=== PATIENT | female | born 1960 | race Caucasian/White ===

== ENCOUNTER 2023-06-26 17:41 | Inpatient (IN) | payer BC ==
--- NOTE | 2023-06-26 18:41 | ED ---
Recheck HPI - General Chief Complaint: Upper Respiratory Infection Stated Complaint: Upper respiratory Time Seen by Provider: 06/26/23 18:25 Source: patient, RN notes reviewed, old records reviewed Mode of arrival: EMS Limitations: no limitations - History of Present Illness Initial Comments: This is a 63-year-old female to the emergency department for evaluation today. Patient presents today for evaluation of pneumonia. Patient is accepted in transfer for evaluation of multiple laboratory abnormalities and positive for pneumonia. Patient herself is still short of breath here in the emergency department. Patient again except just transfer MD Complaint: abnormal lab, other (Pneumonia, renal failure, elevated potassium) -: unknown Returns Today for: Called Because of Abnormal Lab/Test, persistent/worsening pain related to initial visit Symptoms Since Prior Visit: no new symptoms Context: planned re-check, called for abnormal lab result Associated Symptoms: none Treatments Prior to Arrival: Given Antibiotics on, other - Related Data Previous Rx's Medication Instructions Recorded Ampicillin-Sulbactam [Unasyn 3 gm 3 gm IVPB Q24HR@1600 each 07/01/23 vial] Metoprolol Tartrate [Lopressor] 100 mg PO BID tab 07/01/23 Allergies Allergy/AdvReac Type Severity Reaction Status Date / Time bee venom protein (honey bee) Allergy Anaphylaxis Verified 06/26/23 18:53 morphine Allergy Rash/Hives Verified 06/26/23 18:53 bagged carrots AdvReac Nausea & Uncoded 06/26/23 18:52 Vomiting & Diarrhea bagged lettuce AdvReac Nausea & Uncoded 06/26/23 18:52 Vomiting & Diarrhea preservatives AdvReac Nausea & Uncoded 06/26/23 18:52 Vomiting & Diarrhea Review of Systems ROS Statement: Those systems with pertinent positive or pertinent negative responses have been documented in the HPI. ROS Other: All systems not noted in ROS Statement are negative. Past Medical History Past Medical History: Hyperlipidemia, Hypertension Additional Past Medical History / Comment(s): colon polup, diverticulosis, kidney stone Past Surgical History: Section, Hysterectomy, Tubal Ligation Additional Past Surgical History / Comment(s): colonoscopy 2014 Past Psychological History: No Psychological Hx Reported Smoking Status: Former smoker Past Alcohol Use History: None Reported Past Drug Use History: None Reported General Exam Limitations: no limitations General appearance: alert, in no apparent distress Head exam: Present: atraumatic, normocephalic, normal inspection Eye exam: Present: normal appearance, PERRL, EOMI. Absent: scleral icterus, c onjunctival injection, periorbital swelling ENT exam: Present: normal exam, mucous membranes moist Neck exam: Present: normal inspection. Absent: tenderness, meningismus, lymphadenopathy Respiratory exam: Present: normal lung sounds bilaterally. Absent: respiratory distress, wheezes, rales, rhonchi, stridor Cardiovascular Exam: Present: regular rate, normal rhythm, normal heart sounds. Absent: systolic murmur, diastolic murmur, rubs, gallop, clicks GI/Abdominal exam: Present: soft, normal bowel sounds. Absent: distended, tenderness, guarding, rebound, rigid Extremities exam: Present: normal inspection, full ROM, normal capillary refill. Absent: tenderness, pedal edema, joint swelling, calf tenderness Back exam: Present: normal inspection Neurological exam: Present: alert, oriented X3, CN II-XII intact Psychiatric exam: Present: normal affect, normal mood Skin exam: Present: warm, dry, intact, normal color. Absent: rash Course Vital Signs 06/26/23 06/26/23 06/26/23 17:45 19:00 20:00 Temperature 97.1 F L Pulse Rate 74 Respiratory 22 14 18 Rate Blood Pressure 145/115 142/66 159/87 O2 Sat by Pulse 94 L 93 L 90 L Oximetry 06/26/23 06/26/23 21:00 22:00 Temperature Pulse Rate 81 78 Respiratory 20 15 Rate Blood Pressure 132/64 153/78 O2 Sat by Pulse 92 L 98 Oximetry - Reevaluation(s) Reevaluation #1: 06/26/23 18:52 Medical records reviewed 06/26/23 18:53 Transfer paperwork is reviewed Reevaluation #2: 06/26/23 20:34 Patient has no significant change in symptoms Reevaluation #3: 06/26/23 20:34 Patient informed of results questions answered Reevaluation #4: 06/26/23 18:53 Was pt. sent in by a medical professional or institution (, PA, THERMAL CUTTING MACHINE OPERATOR, urgent care, hospital, or senior care...) When possible be specific @ -no Did you speak to anyone other than the patient for history (EMS, parent, family, police, friend...)? What history was obtained from this source @ -no Did you review nursing and triage notes (agree or disagree)? Why? @ -agree Are old charts reviewed (outside hosp., previous admission, EMS record, old EKG, old radiological studies, urgent care reports/EKG's, senior care records)? Report findings @ -yes Differential Diagnosis (chest pain, altered mental status, abdominal pain women, abdominal pain men, vaginal bleeding, weakness, fever, dyspnea, syncope, headache, dizziness, GI bleed, back pain, seizure, CVA, palpatations, mental health, musculoskeletal)? @ -prior EKG interpreted by me (3pts min.). @ -yes X-rays interpreted by me (1pt min.). @ -yes CT interpreted by me (1pt min.). @ -no U/S interpreted by me (1pt. min.). @ -no What testing was considered but not performed or refused? (CT, X-rays, U/S, labs)? Why? @ -none What meds were considered but not given or refused? Why? @ -none Did you discuss the management of the patient with other professionals ( professionals i.e. , PA, THERMAL CUTTING MACHINE OPERATOR, lab, RT, psych nurse, social services, wood shop teacher, teacher, sheriffs officer, casework supervisor)? Give summary @ -no Was smoking cessation discussed for >3mins.? @ -no Was critical care preformed (if so, how long)? @ -no Were there social determinants of health that impacted care today? How? (Homelessness, low income, unemployed, alcoholism, drug addiction, transportation, low edu. Level, literacy, decrease access to med. care, usp, rehab)? @ -none Was there de-escalation of care discussed even if they declined (Discuss DNR or withdrawal of care, Hospice)? DNR status @ -no What co-morbidities impacted this encounter? (DM, HTN, Smoking, COPD, CAD, Cancer, CVA, ARF, Chemo, Hep., AIDS, mental health diagnosis, sleep apnea, morbid obesity)? @ -none Was patient admitted / discharged? Hospital course, mention meds given and route, prescriptions, significant lab abnormalities, going to OR and other pertinent info. @ - 63 female in transfer for upper respiratory infection pneumonia renal failure with elevated potassium. Admitted Undiagnosed new problem with uncertain prognosis? @ -no Drug Therapy requiring intensive monitoring for toxicity (Heparin, Nitro, Insul in, Cardizem)? @ -no Were any procedures done? @ -no Diagnosis/symptom? @ -Acute renal failure with elevated potassium and pneumonia Acute, or Chronic, or Acute on Chronic? @ -Acute Uncomplicated (without systemic symptoms) or Complicated (systemic symptoms)? @ -Complicated Side effects of treatment? @ -no Exacerbation, Progression, or Severe Exacerbation? @ -exacerbation Poses a threat to life or bodily function? How? (Chest pain, [place], [place], pneumonia, PE, COPD, DKA, ARF, appy, cholecystitis, CVA, Diverticulitis, Homicidal, Suicidal, threat to staff... and all critical care pts) @ -yes - Consultations Consultation #1: Spoke with [facility] who agreed to admit the patient Medical Decision Making - Medical Decision Making 63 female in transfer for upper respiratory infection pneumonia renal failure with elevated potassium. - Lab Data Result diagrams: 07/01/23 01:58 07/01/23 14:06 Lab Results 06/26/23 06/26/23 06/26/23 Range/Units 19:17 19:17 19:17 WBC 17.7 H (3.8-10.6) k/uL RBC 3.40 L (3.80-5.40) m/uL Hgb 10.2 L (11.4-16.0) gm/dL Hct 29.4 L (34.0-46.0) % MCV 86.5 (80.0-100.0) fL MCH 30.1 (25.0-35.0) pg MCHC 34.9 (31.0-37.0) g/dL RDW 13.7 (11.5-15.5) % Plt Count 445 (150-450) k/uL MPV 6.6 Neutrophils % 88 % Lymphocytes % 7 % Monocytes % 4 % Eosinophils % 1 % Basophils % 0 % Neutrophils # 15.6 H (1.3-7.7) k/uL Lymphocytes # 1.3 (1.0-4.8) k/uL Monocytes # 0.6 (0-1.0) k/uL Eosinophils # 0.1 (0-0.7) k/uL Basophils # 0.0 (0-0.2) k/uL PT 10.8 (9.0-12.0) sec INR 1.0 (<1.2) Sodium 122 L (137-145) mmol/L Potassium 5.0 (3.5-5.1) mmol/L Chloride 83 L (98-107) mmol/L Carbon Dioxide 19 L (22-30) mmol/L Anion Gap 20 mmol/L BUN 100 H (7-17) mg/dL Creatinine 14.72 H* (0.52-1.04) mg/dL Est GFR (CKD-EPI)AfAm 3 (>60 ml/min/1.73 sqM) Est GFR (CKD-EPI)NonAf 2 (>60 ml/min/1.73 sqM) Glucose 72 L (74-99) mg/dL Calcium 10.1 (8.4-10.2) mg/dL Phosphorus 9.9 H* (2.5-4.5) mg/dL Magnesium 2.2 (1.6-2.3) mg/dL Total Bilirubin 0.8 (0.2-1.3) mg/dL AST 23 (14-36) U/L ALT 25 (4-34) U/L Alkaline Phosphatase 160 H (38-126) U/L Troponin I (0.000-0.034) ng/mL Total Protein 6.8 (6.3-8.2) g/dL Albumin 3.4 L (3.5-5.0) g/dL 06/26/23 Range/Units 19:17 WBC (3.8-10.6) k/uL RBC (3.80-5.40) m/uL Hgb (11.4-16.0) gm/dL Hct (34.0-46.0) % MCV (80.0-100.0) fL MCH (25.0-35.0) pg MCHC (31.0-37.0) g/dL RDW (11.5-15.5) % Plt Count (150-450) k/uL MPV Neutrophils % % Lymphocytes % % Monocytes % % Eosinophils % % Basophils % % Neutrophils # (1.3-7.7) k/uL Lymphocytes # (1.0-4.8) k/uL Monocytes # (0-1.0) k/uL Eosinophils # (0-0.7) k/uL Basophils # (0-0.2) k/uL PT (9.0-12.0) sec INR (<1.2) Sodium (137-145) mmol/L Potassium (3.5-5.1) mmol/L Chloride (98-107) mmol/L Carbon Dioxide (22-30) mmol/L Anion Gap mmol/L BUN (7-17) mg/dL Creatinine (0.52-1.04) mg/dL Est GFR (CKD-EPI)AfAm (>60 ml/min/1.73 sqM) Est GFR (CKD-EPI)NonAf (>60 ml/min/1.73 sqM) Glucose (74-99) mg/dL Calcium (8.4-10.2) mg/dL Phosphorus (2.5-4.5) mg/dL Magnesium (1.6-2.3) mg/dL Total Bilirubin (0.2-1.3) mg/dL AST (14-36) U/L ALT (4-34) U/L Alkaline Phosphatase (38-126) U/L Troponin I <0.012 (0.000-0.034) ng/mL Total Protein (6.3-8.2) g/dL Albumin (3.5-5.0) g/dL - EKG Data -: EKG Interpreted by Me (EKG is sinus 78 IN 194 QRS 103 QTC 398) - Radiology Data Radiology results: report reviewed (Patient had outpatient computed tomography scan confirming pneumonia), image reviewed Critical Care Time Critical Care Time: Yes Total Critical Care Time: 31 Disposition Clinical Impression: Acute upper respiratory infection, Pneumonia, YASMINE (acute kidney injury), Hyperkalemia Disposition: ADMITTED IP TO THIS HOSP Condition: Stable Is patient prescribed a controlled substance at d/c from ED?: No Time of Disposition: 20:30
[2023-06-26] MEDS ORDERED: ONDANSETRON 4 MG/2 ML VIAL IVP STA (19:00)
[2023-06-26] MEDS ORDERED: SODIUM CHLORIDE 0.9% 1,000 ML IV STA (19:00)
[2023-06-26] MEDS ORDERED: ONDANSETRON 4 MG/2 ML VIAL IVP PRN (20:26)
[2023-06-26] MEDS ORDERED: NALOXONE 0.4 MG/ML 1 ML VIAL IV PRN (20:26)
[2023-06-26] MEDS: SODIUM CHLORIDE 0.9% 1,000 ML IV SCH (20:41)
[2023-06-26 20:42] LABS: Basophils % (A) 0 %; Eosinophils # (A) 0.1 k/uL (0-0.7); Eosinophils % (A) 1 %; HCT 29.4 % (34.0-46.0); HGB 10.2 gm/dL (11.4-16.0); Lymphocytes # (A) 1.3 k/uL (1.0-4.8); Lymphocytes % (A) 7 %; MCH 30.1 pg (25.0-35.0); MCHC 34.9 g/dL (31.0-37.0); MCV 86.5 fL (80.0-100.0); Mean Platelet Volume 6.6; Monocytes # (A) 0.6 k/uL (0-1.0); Monocytes % (A) 4 %; Neutrophils # (A) 15.6 k/uL (1.3-7.7); Neutrophils % (A) 88 %; Platelet Count 445 k/uL (150-450); RDW 13.7 % (11.5-15.5); WBC 17.7 k/uL (3.8-10.6)
[2023-06-26 20:53] LABS: Prothrombin Time 10.8 sec (9.0-12.0)
[2023-06-26 21:11] LABS: ALT 25 U/L (4-34); AST 23 U/L (14-36); African American GFR (CKD) 3 (>60 ml/min/1.73 sqM); Albumin 3.4 g/dL (3.5-5.0); Alkaline Phosphatase 160 U/L (38-126); Anion Gap 20 mmol/L; Blood Urea Nitrogen 100 mg/dL (7-17); Calcium 10.1 mg/dL (8.4-10.2); Carbon Dioxide 19 mmol/L (22-30); Chloride 83 mmol/L (98-107); Glucose 72 mg/dL (74-99); Magnesium 2.2 mg/dL (1.6-2.3); Non-African American GFR(CKD) 2 (>60 ml/min/1.73 sqM); Sodium 122 mmol/L (137-145); Total Bilirubin 0.8 mg/dL (0.2-1.3); Total Protein 6.8 g/dL (6.3-8.2)
[2023-06-26 21:35] LABS: Phosphorus 9.9 mg/dL (2.5-4.5)
[2023-06-27] MEDS ORDERED: IPRATROPIUM-ALBUTEROL 3 ML NEB INHALATION PRN ×2 (02:38→06:40)
[2023-06-27] MEDS ORDERED: IPRATROPIUM-ALBUTEROL 3 ML NEB INHALATION SCH (02:45)
--- NOTE | 2023-06-27 06:41 | P.CNPUL ---
History of Present Illness Consult date: 06/27/23 Requesting physician: Luis Allan Reason for consult: pneumonia Chief complaint: Nausea and vomiting and shortness of breath History of present illness: I am seeing this patient in new consultation today 06/27/2023 after she was transferred from [facility] yesterday evening reportedly for pneumonia among other medical concerns. Patient is a 63-year-old white female past medic al history significant for hypertension, hyperlipidemia, and obesity. Denies any significant pulmonary disease or being a tobacco smoker. Patient reportedly started to experience intractable nausea and vomiting, diarrhea, reduced appetite, and shortness of breath approximately one week ago. Patient did have a workup at [facility] which included a nonenhanced abdominal and pelvis CT, which was reportedly concerning for a right middle lobe infiltrate/pneumonia. No acute intra-abdominal abnormalities were reported. Patient denies any abdominal pain, constipation, bloody stools, or hematemesis. At the outside facility, the patient was also found to have acute kidney injury and multiple electrolyte abnormalities. She was reportedly taking ibuprofen for several days. BMP on arrival to our facility shows a sodium 122, potassium 5, chloride 83, serum bicarb 19, BUN 100, creatinine 14.72, glucose 72, phosphorus 9.9. No plans for hemodialysis at this time. Urinalysis at outside facility was not particularly concerning for UTI. Troponins were less than 0.012. CBC on arrival to our facility shows leukocytosis with a WBC count of 17.7, hemoglobin 10.2, hematocrit 29.4, chloride 445. The patient was started on a combination of azithromycin and Rocephin. Patient is currently afebrile. Blood pressure is normotensive. She was reportedly fluid resuscitated with a total of 2 L normal saline bolus, and currently has normal saline infusing at 130 ML's per hour. Patient is currently sitting up in bed, on 4 L/m nasal cannula, in no acute distress. She denies any further vomiting today, and is able to keep down clear liquids. Vital signs are stable at this time. Review of Systems REVIEW OF SYSTEMS: CONSTITUTIONAL: Denies any recent significant weight loss or weight gain. EYES: Denies change in vision. EARS, NOSE, MOUTH, THROAT: Denies headaches, denies sore throat. CARDIOVASCULAR: Denies chest pain, palpitations or syncopal episodes. RESPIRATORY: Denies cough, congestion or hemoptysis. Admits shortness breath, especially on exertion, over one week. GASTROINTESTINAL: See HPI GENITOURINARY: Denies hematuria, denies infections. MUSKULOSKELETAL: Denies pain, denies swelling. INTEGUMENTARY: Denies rash, denies eczema. NEUROLOGICAL: Denies recent memory loss, no recent seizure activity. PSYCHIATRIC: Denies anxiety, denies depression. HEMATOLOGIC/LYMPHATIC: Denies anemia, denies enlarged lymph node Past Medical History Past Medical History: Hyperlipidemia, Hypertension Additional Past Medical History / Comment(s): colon polup, diverticulosis, kidney stone History of Any Multi-Drug Resistant Organisms: None Reported Past Surgical History: Section, Hysterectomy, Tubal Ligation Additional Past Surgical History / Comment(s): colonoscopy 2014 Past Anesthesia/Blood Transfusion Reactions: No Reported Reaction Past Psychological History: No Psychological Hx Reported Smoking Status: Former smoker Past Alcohol Use History: None Reported Past Drug Use History: None Reported Medications and Allergies Home Medications Medication Instructions Recorded Confirmed Type Metoprolol Tartrate [Lopressor] 50 mg PO BID-W/MEALS 06/26/23 06/26/23 History Allergies Allergy/AdvReac Type Severity Reaction Status Date / Time bee venom protein (honey bee) Allergy Anaphylaxis Verified 06/26/23 18:53 morphine Allergy Rash/Hives Verified 06/26/23 18:53 bagged carrots AdvReac Nausea & Uncoded 06/26/23 18:52 Vomiting & Diarrhea bagged lettuce AdvReac Nausea & Uncoded 06/26/23 18:52 Vomiting & Diarrhea preservatives AdvReac Nausea & Uncoded 06/26/23 18:52 Vomiting & Diarrhea Physical Exam Vitals: Vital Signs Temp Pulse Pulse Resp BP BP Pulse Ox 06/27/23 04:00 97.9 F 60 19 140/83 95 06/27/23 03:03 71 06/27/23 02:53 70 06/27/23 02:45 71 22 173/87 91 L 06/27/23 00:00 72 18 148/81 98 06/26/23 23:19 97.8 F 75 20 152/83 97 06/26/23 22:00 78 15 153/78 98 06/26/23 21:00 81 20 132/64 92 L 06/26/23 20:00 18 159/87 90 L 06/26/23 19:00 14 142/66 93 L 06/26/23 17:45 97.1 F L 74 22 145/115 94 L Intake and Output 06/26/23 06/26/23 06/27/23 14:59 22:59 06:59 Other: Voiding Method Toilet # Voids 1 Weight 117.934 kg GENERAL EXAM: Alert, 63-year-old obese white female appearing stated age , co mfortable in no apparent distress. HEAD: Normocephalic and atraumatic EYES: Normal reaction of pupils, equal size. NOSE: Clear with pink turbinates. THROAT: No erythema or exudates. NECK: No masses, no JVD. CHEST: No chest wall deformity. LUNGS: Equal air entry with inspiratory right posterior crackles. No wheeze, rhonchi or dullness. On 4 L/m nasal cannula. No conversational dyspnea or accessory muscle use.. CVS: S1 and S2 normal with no audible murmur, regular rhythm. No extra heart sounds ABDOMEN: Obese abdomen, no hepatosplenomegaly, active bowel sounds, no guarding or rigidity. SPINE: No scoliosis or deformity SKIN: No rashes CENTRAL NERVOUS SYSTEM: No focal deficits, tone is normal in all 4 extremities. EXTREMITIES: There is no peripheral edema, clubbing, or cyanosis. Peripheral pulses are intact. Results - Laboratory Findings CBC and BMP: 06/26/23 19:17 06/26/23 19:17 PT/INR, D-dimer PT 10.8 sec (9.0-12.0) 06/26/23 19:17 INR 1.0 (<1.2) 06/26/23 19:17 Abnormal lab findings: Abnormal Labs 06/26/23 06/26/23 19:17 19:17 WBC 17.7 H RBC 3.40 L Hgb 10.2 L Hct 29.4 L Neutrophils # 15.6 H Sodium 122 L Chloride 83 L Carbon Dioxide 19 L BUN 100 H Creatinine 14.72 H* Glucose 72 L Phosphorus 9.9 H* Alkaline Phosphatase 160 H Albumin 3.4 L Assessment and Plan Assessment: Acute hypoxemic respiratory failure, on 4 L/m nasal cannula, possibly secondary to right middle lobe infiltrate/pneumonia as reported from outside facility, currently being treated on empiric antibiotics. Follow-up chest x-ray is pending Suspect acute gastroenteritis and dehydration Leukocytosis Acute kidney injury, creatinine 14.72 Acute anion gap metabolic acidosis Hyponatremia, related to hypovolemia Hyperkalemia, improved Hyperphosphatemia Essential hypertension Hyperlipidemia Morbid obesity, with a BMI of 37 kg/m Plan: Patient's medications and labs reviewed Obtain chest x-ray Continue supplemental oxygen to maintain oxygen saturation 92% or greater Continue empiric antibiotics Add DuoNeb's Normal saline is infusing at 130 ML's per hour Nephrology is following Obtain renal artery Doppler We will continue to follow and make recommendations I have personally seen and examined the patient, performed the documentation and the assessment and plan as written. Number of minutes spent on the visit:20 Time with Patient: Greater than 30
[2023-06-27] MEDS: SODIUM CHLORIDE 0.9% 1,000 ML IV SCH (06:51)
--- NOTE | 2023-06-27 08:19 | XR ---
EXAMINATION TYPE: XR chest 1V portable DATE OF EXAM: 06/27/2023 6:52 AM COMPARISON: Chest radiographs from 06/26/2023 TECHNIQUE: XR chest 1V portable Portable AP radiograph of the chest. CLINICAL INDICATION:Female, 63 years old with history of reported pneumonia at outside facility; FINDINGS: Lungs/Pleura: No pleural effusion or pneumothorax. Right midlung patchy airspace opacities. Pulmonary vascularity: Unremarkable. Heart/mediastinum: Cardiomediastinal silhouette is unremarkable. Musculoskeletal: No acute osseous pathology. IMPRESSION: Right midlung patchy airspace opacities concerning for pneumonia.
[2023-06-27] MEDS: AZITHROMYCIN 500 MG in SODIUM CHLORIDE 0.9% 250 ML IVPB SCH (08:43)
[2023-06-27] MEDS: METOPROLOL TARTRATE 50 MG TAB PO SCH ×2 (08:43→16:54)
[2023-06-27 09:22] LABS: Basophils % (A) 0 %; Eosinophils % (A) 0 %; HCT 30.3 % (34.0-46.0); HGB 10.3 gm/dL (11.4-16.0); Lymphocytes # (A) 1.1 k/uL (1.0-4.8); Lymphocytes % (A) 6 %; MCH 30.1 pg (25.0-35.0); MCHC 33.9 g/dL (31.0-37.0); MCV 88.8 fL (80.0-100.0); Mean Platelet Volume 6.8; Monocytes # (A) 0.5 k/uL (0-1.0); Monocytes % (A) 3 %; Neutrophils # (A) 16.7 k/uL (1.3-7.7); Neutrophils % (A) 91 %; Platelet Count 436 k/uL (150-450); RBC 3.42 m/uL (3.80-5.40); RDW 13.8 % (11.5-15.5); WBC 18.4 k/uL (3.8-10.6)
[2023-06-27 10:05] LABS: ALT 24 U/L (4-34); AST 24 U/L (14-36); African American GFR (CKD) 3 (>60 ml/min/1.73 sqM); Albumin 3.5 g/dL (3.5-5.0); Alkaline Phosphatase 151 U/L (38-126); Anion Gap 20 mmol/L; Calcium 9.4 mg/dL (8.4-10.2); Carbon Dioxide 16 mmol/L (22-30); Chloride 87 mmol/L (98-107); Glucose 84 mg/dL (74-99); Magnesium 2.1 mg/dL (1.6-2.3); Non-African American GFR(CKD) 3 (>60 ml/min/1.73 sqM); Sodium 123 mmol/L (137-145); Total Bilirubin 0.7 mg/dL (0.2-1.3); Total Protein 6.8 g/dL (6.3-8.2)
[2023-06-27] MEDS: IPRATROPIUM-ALBUTEROL 3 ML NEB INHALATION SCH ×4 (10:06→19:38)
--- NOTE | 2023-06-27 10:10 | US ---
EXAMINATION TYPE: US renals and bladder DATE OF EXAM: 06/27/2023 COMPARISON: None CLINICAL INDICATION: Female, 63 years old with history of acute kidney injury; Abnormal labs. Chroni c hematuria per patient. Portable inpatient exam EXAM MEASUREMENTS: Right Kidney: 11.6 x 4.6 x 4.2 cm Left Kidney: 12.7 x 4.6 x 4.6 cm Right Kidney: Lateral lower pole anechoic lesion = 1.4 x 1.3 x 1.2 cm Left Kidney: Lateral upper pole hypoechoic lesion = 1.2 x 1.4 x 1.3 cm Bladder: mildly distended, limited visualization Bilateral Jets not seen There is no evidence for hydronephrosis at this point in time. No nephrolithiasis is seen. Right lat eral lower pole simple cyst measuring 1.4 cm. Lateral upper pole left kidney hypoechoic 1.3 similar l esion. Corticomedullary differentiation is maintained. The urinary bladder is anechoic. Bilateral ur eteral jets are not seen. IMPRESSION: 1. No hydronephrosis or nephrolithiasis. 2. Right renal simple cyst. 3. Left renal hypoechoic lesion which may represent a cyst. This can be further evaluated with CT or MR abdomen with and without IV contrast (renal mass protocol). Otherwise consider follow-up ultrasoun d in 3 months.
[2023-06-27 10:15] LABS: Blood Urea Nitrogen 102 mg/dL (7-17)
[2023-06-27 10:16] LABS: Potassium 6.3 mmol/L (3.5-5.1)
[2023-06-27] MEDS ORDERED: INSULIN REGULAR 100 UNIT/ML VIAL (IV) IV ONE (10:25)
[2023-06-27] MEDS ORDERED: SODIUM BICARB 8.4% 50 ML SYR (1 MEQ/ML) IV STA (10:25)
[2023-06-27] MEDS ORDERED: DEXTROSE 50% SYRINGE 50 ML IVP STA (10:26)
[2023-06-27] MEDS ORDERED: CALCIUM CHLORIDE 100 MG/ML 10 ML SYRINGE IVP ONE (10:26)
[2023-06-27 10:39] LABS: Phosphorus 10.6 mg/dL (2.5-4.5)
[2023-06-27] MEDS: DEXTROSE 5% IN WATER 1,000 ML with SODIUM BICARB (1 MEQ/ML) 150 ML IV SCH (11:27)
[2023-06-27] MEDS ORDERED: SODIUM ZIRCONIUM CYCLOSILICATE 10 GM PACKET PO ONE (12:59)
--- NOTE | 2023-06-27 12:59 | P.NPCON ---
History of Present Illness - Reason for Consult acute renal failure - History of Present Illness Patient is a 63-year-old female who is transferred from [facility]. Patient presented there with complaints of increased shortness of breath nausea and vomiting and decreased oral intake. Patient denied any fever or chills. Patient did admit to decreased urine output for 2-3 days. No previous history of kidney diseases. Patient is noted to have a serum creatinine of 14.7 with serum sodium 122 and p otassium 5.0. Bladder scan showed 157 mL of urine. Repeat potassium was 6.3 with BUN of 102 and creatinine 13.8. No previous labs available for comparison. Patient did admit to use of Aleve for about 5 days prior to admission. Ultrasound shows no evidence of hydronephrosis. Blood pressure is not low, in fact it is on the high side. Review of Systems As per HPI Past Medical History Past Medical History: Hyperlipidemia, Hypertension Additional Past Medical History / Comment(s): colon polup, diverticulosis, kidney stone History of Any Multi-Drug Resistant Organisms: None Reported Past Surgical History: Section, Hysterectomy, Tubal Ligation Additional Past Surgical History / Comment(s): colonoscopy 2014 Past Anesthesia/Blood Transfusion Reactions: No Reported Reaction Past Psychological History: No Psychological Hx Reported Smoking Status: Former smoker Past Alcohol Use History: None Reported Past Drug Use History: None Reported Medications and Allergies Home Medications Medication Instructions Recorded Confirmed Type Metoprolol Tartrate [Lopressor] 50 mg PO BID-W/MEALS 06/26/23 06/26/23 History Allergies Allergy/AdvReac Type Severity Reaction Status Date / Time bee venom protein (honey bee) Allergy Anaphylaxis Verified 06/26/23 18:53 morphine Allergy Rash/Hives Verified 06/26/23 18:53 bagged carrots AdvReac Nausea & Uncoded 06/26/23 18:52 Vomiting & Diarrhea bagged lettuce AdvReac Nausea & Uncoded 06/26/23 18:52 Vomiting & Diarrhea preservatives AdvReac Nausea & Uncoded 06/26/23 18:52 Vomiting & Diarrhea Physical Exam Vitals: Vital Signs Temp Pulse Pulse Pulse Resp BP BP 06/27/23 10:24 68 06/27/23 10:06 64 06/27/23 08:00 97.7 F 69 17 160/67 06/27/23 04:00 97.9 F 60 19 140/83 06/27/23 03:03 71 06/27/23 02:53 70 06/27/23 02:45 71 22 173/87 06/27/23 00:00 72 18 148/81 06/26/23 23:19 97.8 F 75 20 152/83 06/26/23 22:00 78 15 153/78 06/26/23 21:00 81 20 132/64 06/26/23 20:00 18 159/87 06/26/23 19:00 14 142/66 06/26/23 17:45 97.1 F L 74 22 145/115 Pulse Ox 06/27/23 10:24 06/27/23 10:06 90 L 06/27/23 08:00 94 L 06/27/23 04:00 95 06/27/23 03:03 06/27/23 02:53 06/27/23 02:45 91 L 06/27/23 00:00 98 06/26/23 23:19 97 06/26/23 22:00 98 06/26/23 21:00 92 L 06/26/23 20:00 90 L 06/26/23 19:00 93 L 06/26/23 17:45 94 L Intake and Output 06/26/23 06/27/23 06/27/23 22:59 06:59 14:59 Intake Total 200 Balance 200 Intake: Oral 200 Other: Voiding Method Toilet Toilet # Voids 1 Weight 117.934 kg Patient is awake, comfortable, no acute distress Examination of the heart S1 and S2 Examination of the lungs bilateral breath sounds are heard Abdomen is soft nontender Examination of lower extremities shows no significant edema. MANAGER EVENT exam grossly intact Results - Lab Results Most recent lab results Calcium 9.4 mg/dL (8.4-10.2) 06/27/23 08:44 Phosphorus 10.6 mg/dL (2.5-4.5) H* 06/27/23 08:44 Magnesium 2.1 mg/dL (1.6-2.3) 06/27/23 08:44 06/27/23 08:44 06/27/23 08:44 Assessment and Plan Assessment: 1. Acute kidney injury, ATN currently nonoliguric. No evidence of obstruction. Check urine analysis. 2. Right lung pneumonia maintained on antibiotics 3. Hyperkalemia associated with acute kidney injury 4. Anion-gap metabolic acidosis secondary to advanced renal failure. 5. Anemia rule out iron deficiency 6. Hyperphosphatemia secondary to advanced renal failure Plan: Change IV fluids to IV bicarb Treat potassium with IV medications Price luciano Discussed renal replacement therapy with patient and family. I have advised them that we may need to start dialysis if hyperkalemia persists and renal function does not improve by tomorrow. They are agreeable Patient is advised to avoid use of NSAIDs. Continue with antibiotics Thank you for the consultation. We will continue to follow the patient with you during her hospitalization.
--- NOTE | 2023-06-27 13:59 | P.HPIM ---
History of Present Illness H&P Date: 06/27/23 History of present illness; patient is 63-year-old lady with past medical histor y significant for hypertension, who was a transfer from [facility] after initially presenting there for nausea vomiting and diarrhea. Patient stated that she has been having these symptom for at least 1 week. Patient has been having reduced appetite, having persistent nausea and vomiting. Also complaining of shortness of breath. No complaint of fever or chills. Patient presented to previous facility.,She had workup done and was found to be in acute kidney injury. CT abdominal pelvis done there showed features concerning for pneumonia. Patient was transferred to [facility] Initial lab work done in the ER showed WBC 17.7, hemoglobin 10.2, platelet count 445, sodium 122, potassium 5, BUN 100, creatinine 14.7, phosphorus 9.9, magnesium 2.2 Patient was admitted to medicine service REVIEW OF SYSTEMS: CONSTITUTIONAL: As mentioned in HPI HEENT: No recent visual problems or hearing problems. Denied any sore throat. CARDIOVASCULAR: No chest pain, orthopnea, PND, no palpitations, no syncope. PULMONARY:As mentioned in HPI GASTROINTESTINAL As mentioned in HPI NEUROLOGICAL: No headaches, no weakness, no numbness. HEMATOLOGICAL: Denies any bleeding or petechiae. GENITOURINARY: Denies any burning micturition, frequency, or urgency. MUSCULOSKELETAL/RHEUMATOLOGICAL: Denies any joint pain, swelling, or any muscle pain. ENDOCRINE: Denies any polyuria or polydipsia. The rest of the 14-point review of systems is negative. PHYSICAL EXAMINATION: GENERAL: The patient is alert and oriented x3, not in any acute distress. Well developed, well nourished. HEENT: Pupils are round and equally reacting to light. EOMI. No scleral icterus. No conjunctival pallor. Normocephalic, atraumatic. No pharyngeal erythema. No thyromegaly. CARDIOVASCULAR: S1 and S2 present. No murmurs, rubs, or gallops. PULMONARY: Coarse Breath sounds bilaterally, no wheeze ABDOMEN: Soft, nontender, nondistended, normoactive bowel sounds. No palpable organomegaly. MUSCULOSKELETAL: No joint swelling or deformity. EXTREMITIES: No cyanosis, clubbing, or pedal edema. NEUROLOGICAL: Gross neurological examination did not reveal any focal deficits. SKIN: No rashes. Assessment and plan Acute kidney injury Hyperphosphatemia Hyponatremia Bacterial pneumonia Hypertension Monitor vital signs Monitor CBC Monitor CMP Continue telemetry monitoring Strict I's and O's Daily weights Avoid nephrotoxic agents Continue IV fluids Ordered ultrasound kidneys Continue IV Rocephin and azithromycin Consult nephrology Consult pulmonology Labs and medication were reviewed.. Continue same treatment. Continue with symptomatic treatment. Resume home medication. Monitor labs and vitals. DVT and GI prophylaxis. Further recommendations as per clinical course of the patient Dictation was produced using [employer] dictation software. please excuse any grammatical, word or spelling errors. Past Medical History Past Medical History: Hyperlipidemia, Hypertension Additional Past Medical History / Comment(s): colon polup, diverticulosis, kidney stone History of Any Multi-Drug Resistant Organisms: None Reported Past Surgical History: Section, Hysterectomy, Tubal Ligation Additional Past Surgical History / Comment(s): colonoscopy 2014 Past Anesthesia/Blood Transfusion Reactions: No Reported Reaction Past Psychological History: No Psychological Hx Reported Smoking Status: Former smoker Past Alcohol Use History: None Reported Past Drug Use History: None Reported Medications and Allergies Home Medications Medication Instructions Recorded Confirmed Type Metoprolol Tartrate [Lopressor] 50 mg PO BID-W/MEALS 06/26/23 06/26/23 History Allergies Allergy/AdvReac Type Severity Reaction Status Date / Time bee venom protein (honey bee) Allergy Anaphylaxis Verified 06/26/23 18:53 morphine Allergy Rash/Hives Verified 06/26/23 18:53 bagged carrots AdvReac Nausea & Uncoded 06/26/23 18:52 Vomiting & Diarrhea bagged lettuce AdvReac Nausea & Uncoded 06/26/23 18:52 Vomiting & Diarrhea preservatives AdvReac Nausea & Uncoded 06/26/23 18:52 Vomiting & Diarrhea Physical Exam Vitals: Vital Signs Temp Pulse Pulse Resp BP BP Pulse Ox 06/27/23 04:00 97.9 F 60 19 140/83 95 06/27/23 03:03 71 06/27/23 02:53 70 06/27/23 02:45 71 22 173/87 91 L 06/27/23 00:00 72 18 148/81 98 06/26/23 23:19 97.8 F 75 20 152/83 97 06/26/23 22:00 78 15 153/78 98 06/26/23 21:00 81 20 132/64 92 L 06/26/23 20:00 18 159/87 90 L 06/26/23 19:00 14 142/66 93 L 06/26/23 17:45 97.1 F L 74 22 145/115 94 L Intake and Output 06/26/23 06/27/23 06/27/23 22:59 06:59 14:59 Intake Total 200 Balance 200 Intake: Oral 200 Other: Voiding Method Toilet # Voids 1 Weight 117.934 kg Results CBC & Chem 7: 06/27/23 08:44 06/27/23 08:44 Labs: Abnormal Lab Results - Last 24 Hours (Table) 06/26/23 06/26/23 06/27/23 Range/Units 19:17 19:17 08:44 WBC 17.7 H 18.4 H (3.8-10.6) k/uL RBC 3.40 L 3.42 L (3.80-5.40) m/uL Hgb 10.2 L 10.3 L (11.4-16.0) gm/dL Hct 29.4 L 30.3 L (34.0-46.0) % Neutrophils # 15.6 H 16.7 H (1.3-7.7) k/uL Sodium 122 L (137-145) mmol/L Chloride 83 L (98-107) mmol/L Carbon Dioxide 19 L (22-30) mmol/L BUN 100 H (7-17) mg/dL Creatinine 14.72 H* (0.52-1.04) mg/dL Glucose 72 L (74-99) mg/dL Phosphorus 9.9 H* (2.5-4.5) mg/dL Alkaline Phosphatase 160 H (38-126) U/L Albumin 3.4 L (3.5-5.0) g/dL Thrombosis Risk Factor Assmnt - Choose All That Apply Any of the Below Risk Factors Present?: Yes Each Factor Represents 1 point: Obesity (BMI >25), Serious lung disease incl. pneumonia (< 1month) Thrombosis Risk Factor Assessment Total Risk Factor Score: 2 Thrombosis Risk Factor Assessment Level: Low Risk
[2023-06-27 15:45] LABS: ALT 25 U/L (4-34); AST 24 U/L (14-36); African American GFR (CKD) 3 (>60 ml/min/1.73 sqM); Albumin 3.2 g/dL (3.5-5.0); Alkaline Phosphatase 144 U/L (38-126); Anion Gap 18 mmol/L; Calcium 9.6 mg/dL (8.4-10.2); Carbon Dioxide 19 mmol/L (22-30); Chloride 86 mmol/L (98-107); Glucose 85 mg/dL (74-99); Non-African American GFR(CKD) 2 (>60 ml/min/1.73 sqM); Potassium 5.1 mmol/L (3.5-5.1); Sodium 123 mmol/L (137-145); Total Bilirubin 0.7 mg/dL (0.2-1.3); Total Protein 6.4 g/dL (6.3-8.2)
[2023-06-27 16:19] LABS: Blood Urea Nitrogen 101 mg/dL (7-17)
--- NOTE | 2023-06-27 22:30 | P.CONS ---
History of Present Illness - Reason for Consult Consult date: 06/27/23 Pneumonia, sepsis Requesting physician: Johnson Valadez - Chief Complaint Nausea vomiting diarrhea and shortness of breath x few days - History of Present Illness Patient is a 63-year-old female with a past medical history significant for hypertension hyperlipidemia diverticulosis kidney stone transferred to this facility for management of underlying acute renal failure patient mention she has been sick for more than a week symptom has been mostly nausea vomiting and diarrhea with multiple loose stools no blood in the stool did have some epigastric discomfort more of a dull aching pain with associated nausea and vomiting patient also complaining of shortness of breath did have a cough mild to moderate intensity not bringing up any sputum did have some chills but denies high-grade fever patient initially evaluated at [facility] patient was found to be in acute renal failure subsequent has been transferred to this facility on presentation to the hospital the patient was afebrile and no fever have been recorded subsequently patient was mildly hypoxic requiring supplemental oxygen currently on 4 L nasal cannula oxygen patient did have white count of 17.7 with a left shift did have elevated BUN/creatinine levels in the normal procalcitonin 0.74 influenza and COVID testing was negative patient did have a chest x-ray right midlung opacity concerning for pneumonia the patient was started on Rocephin infectious disease was consulted for further management of antibiotic therapy Review of Systems Positive point and negatives has been mentioned in the HPI, complete review of systems was performed and all other systems are negative Past Medical History Past Medical History: Hyperlipidemia, Hypertension Additional Past Medical History / Comment(s): colon polup, diverticulosis, kidney stone History of Any Multi-Drug Resistant Organisms: None Reported Past Surgical History: Section, Hysterectomy, Tubal Ligation Additional Past Surgical History / Comment(s): colonoscopy 2014 Past Anesthesia/Blood Transfusion Reactions: No Reported Reaction Past Psychological History: No Psychological Hx Reported Smoking Status: Former smoker Past Alcohol Use History: None Reported Past Drug Use History: None Reported Medications and Allergies Home Medications Medication Instructions Recorded Confirmed Type Ampicillin-Sulbactam [Unasyn 3 gm 3 gm IVPB Q24HR@1600 each 07/01/23 Rx vial] Metoprolol Tartrate [Lopressor] 100 mg PO BID tab 07/01/23 Rx Allergies Allergy/AdvReac Type Severity Reaction Status Date / Time bee venom protein (honey bee) Allergy Anaphylaxis Verified 06/26/23 18:53 morphine Allergy Rash/Hives Verified 06/26/23 18:53 bagged carrots AdvReac Nausea & Uncoded 06/26/23 18:52 Vomiting & Diarrhea bagged lettuce AdvReac Nausea & Uncoded 06/26/23 18:52 Vomiting & Diarrhea preservatives AdvReac Nausea & Uncoded 06/26/23 18:52 Vomiting & Diarrhea Physical Exam Vitals: Vital Signs Temp Pulse Pulse Pulse Resp BP BP 06/27/23 10:24 68 06/27/23 10:06 64 06/27/23 08:00 97.7 F 69 17 160/67 06/27/23 04:00 97.9 F 60 19 140/83 06/27/23 03:03 71 06/27/23 02:53 70 06/27/23 02:45 71 22 173/87 06/27/23 00:00 72 18 148/81 06/26/23 23:19 97.8 F 75 20 152/83 06/26/23 22:00 78 15 153/78 06/26/23 21:00 81 20 132/64 06/26/23 20:00 18 159/87 06/26/23 19:00 14 142/66 06/26/23 17:45 97.1 F L 74 22 145/115 Pulse Ox 06/27/23 10:24 06/27/23 10:06 90 L 06/27/23 08:00 94 L 06/27/23 04:00 95 06/27/23 03:03 06/27/23 02:53 06/27/23 02:45 91 L 06/27/23 00:00 98 06/26/23 23:19 97 06/26/23 22:00 98 06/26/23 21:00 92 L 06/26/23 20:00 90 L 06/26/23 19:00 93 L 06/26/23 17:45 94 L Intake and Output 06/26/23 06/27/23 06/27/23 22:59 06:59 14:59 Intake Total 200 Balance 200 Intake: Oral 200 Other: Voiding Method Toilet Toilet # Voids 1 Weight 117.934 kg GENERAL DESCRIPTION: Middle-aged female lying in bed, no distress. No tachypnea or accessory muscle of respiration use. HEENT: Shows Pallor , no scleral icterus. Oral mucous membrane is dry. No pharyngeal erythema or thrush NECK: Trachea central, no thyromegaly. LUNGS: Unlabored breathing. Coarse breath sounds bilaterally HEART: S1, S2, regular rate and rhythm. No loud murmur ABDOMEN: Soft, no tenderness , guarding or rigidity, no organomegaly EXTREMITIES: No edema of feet. SKIN: No rash, no masses palpable. NEUROLOGICAL: The patient is awake, alert, oriented x3, mood and affect normal. Results CBC & Chem 7: 07/01/23 01:58 07/01/23 14:06 Labs: Abnormal Lab Results - Last 24 Hours (Table) 06/26/23 06/26/23 06/27/23 Range/Units 19:17 19:17 08:44 WBC 17.7 H 18.4 H (3.8-10.6) k/uL RBC 3.40 L 3.42 L (3.80-5.40) m/uL Hgb 10.2 L 10.3 L (11.4-16.0) gm/dL Hct 29.4 L 30.3 L (34.0-46.0) % Neutrophils # 15.6 H 16.7 H (1.3-7.7) k/uL Sodium 122 L (137-145) mmol/L Potassium (3.5-5.1) mmol/L Chloride 83 L (98-107) mmol/L Carbon Dioxide 19 L (22-30) mmol/L BUN 100 H (7-17) mg/dL Creatinine 14.72 H* (0.52-1.04) mg/dL Glucose 72 L (74-99) mg/dL Phosphorus 9.9 H* (2.5-4.5) mg/dL Alkaline Phosphatase 160 H (38-126) U/L Albumin 3.4 L (3.5-5.0) g/dL 06/27/23 Range/Units 08:44 WBC (3.8-10.6) k/uL RBC (3.80-5.40) m/uL Hgb (11.4-16.0) gm/dL Hct (34.0-46.0) % Neutrophils # (1.3-7.7) k/uL Sodium 123 L (137-145) mmol/L Potassium 6.3 H* (3.5-5.1) mmol/L Chloride 87 L (98-107) mmol/L Carbon Dioxide 16 L (22-30) mmol/L BUN 102 H* (7-17) mg/dL Creatinine 13.85 H* (0.52-1.04) mg/dL Glucose (74-99) mg/dL Phosphorus 10.6 H* (2.5-4.5) mg/dL Alkaline Phosphatase 151 H (38-126) U/L Albumin (3.5-5.0) g/dL Assessment and Plan (1) Pneumonia Status: Acute Code(s): J18.9 - PNEUMONIA, UNSPECIFIED ORGANISM SNOMED Code(s): 896070527 Plan: 1patient with a right midlung pneumonia in this patient with predominantly GI symptoms, in addition to the respiratory symptoms with concern for possible Legionella. 2we will check urine for Legionella antigen try to bring sputum for Gram stain culture. 3continue the patient on Rocephin however will add Zithromax while awaiting further work-up to be completed. We will follow on clinical condition and cultures to further adjust medication if needed Thank you for this consultation we will follow the patient along with you Dictation was produced using [employer] dictation software. please excuse any grammatical, word or spelling errors. Time with Patient: Greater than 30
[2023-06-28] MEDS: DEXTROSE 5% IN WATER 1,000 ML with SODIUM BICARB (1 MEQ/ML) 150 ML IV SCH ×3 (00:59→16:45)
[2023-06-28] MEDS: ACETAMINOPHEN TAB 325 MG TAB PO PRN ×2 (00:59→23:57)
[2023-06-28 02:10] LABS: Appearance,Urine Cloudy (Clear); Bacteria,Urine Few /hpf; Bilirubin,Urine Negative (Negative); Blood,Urine Large (Negative); Color,Urine Light Red; Glucose,Urine (UA) Trace (Negative); Ketones,Urine Negative (Negative); Leukocyte Esterase,Urine Small (Negative); Nitrite,Urine Negative (Negative); Protein,Urine 3+ (Negative); RBC,Urine >182 /hpf (0-5); Specific Gravity,Urine 1.011 (1.001-1.035); Squamous Epithelial Cell,Urine 20 /hpf (0-4); Urobilinogen,Urine <2.0 mg/dL (<2.0); WBC,Urine 11 /hpf (0-5)
[2023-06-28] MEDS: METOPROLOL TARTRATE 50 MG TAB PO SCH ×2 (04:46→16:44)
[2023-06-28] MEDS ORDERED: DILTIAZEM DRIP BOLUS FROM BAG 1 MG SOLN IV ONE (05:10)
[2023-06-28] MEDS ORDERED: ALPRAZolam 0.25 MG TAB PO STA (05:10)
[2023-06-28] MEDS: DILTIAZEM 125 MG in SODIUM CHLORIDE 0.9% 100 ML IV SCH ×2 (05:22→16:47)
[2023-06-28] MEDS: AZITHROMYCIN 500 MG in SODIUM CHLORIDE 0.9% 250 ML IVPB SCH (08:09)
[2023-06-28] MEDS: IPRATROPIUM-ALBUTEROL 3 ML NEB INHALATION SCH ×4 (09:02→21:16)
[2023-06-28 09:07] LABS: HCT 27.6 % (34.0-46.0); HGB 9.3 gm/dL (11.4-16.0); MCH 29.6 pg (25.0-35.0); MCHC 33.5 g/dL (31.0-37.0); MCV 88.5 fL (80.0-100.0); Mean Platelet Volume 6.8; Platelet Count 356 k/uL (150-450); RBC 3.12 m/uL (3.80-5.40); RDW 14.1 % (11.5-15.5); WBC 19.8 k/uL (3.8-10.6)
[2023-06-28 10:25] LABS: ALT 24 U/L (4-34); AST 25 U/L (14-36); Alkaline Phosphatase 128 U/L (38-126); Anion Gap 18 mmol/L; Calcium 8.7 mg/dL (8.4-10.2); Carbon Dioxide 20 mmol/L (22-30); Chloride 84 mmol/L (98-107); Glucose 129 mg/dL (74-99); Potassium 4.8 mmol/L (3.5-5.1); Sodium 122 mmol/L (137-145); Total Bilirubin 0.7 mg/dL (0.2-1.3)
[2023-06-28 10:31] LABS: African American GFR (CKD) 3 (>60 ml/min/1.73 sqM); Non-African American GFR(CKD) 2 (>60 ml/min/1.73 sqM)
[2023-06-28 10:42] LABS: Blood Urea Nitrogen 106 mg/dL (7-17)
--- NOTE | 2023-06-28 11:44 | P.PN ---
Subjective Progress Note Date: 06/28/23 I am seeing this patient in new consultation today 06/27/2023 after she was transferred from [facility] yesterday evening reportedly for pneumonia among other medical concerns. Patient is a 63-year-old white female past medical history significant for hypertension, hyperlipidemia, and obesity. De nies any significant pulmonary disease or being a tobacco smoker. Patient reportedly started to experience intractable nausea and vomiting, diarrhea, reduced appetite, and shortness of breath approximately one week ago. Patient did have a workup at [facility] which included a nonenhanced abdominal and pelvis CT, which was reportedly concerning for a right middle lobe infiltrate/pneumonia. No acute intra-abdominal abnormalities were reported. Patient denies any abdominal pain, constipation, bloody stools, or hematemesis. At the outside facility, the patient was also found to have acute kidney injury and multiple electrolyte abnormalities. She was reportedly taking ibuprofen for several days. BMP on arrival to our facility shows a sodium 122, potassium 5, chloride 83, serum bicarb 19, BUN 100, creatinine 14.72, glucose 72, phosphorus 9.9. No plans for hemodialysis at this time. Urinalysis at outside facility was not particularly concerning for UTI. Troponins were less than 0.012. CBC on arrival to our facility shows leukocytosis with a WBC count of 17.7, hemoglobin 10.2, hematocrit 29.4, chloride 445. The patient was started on a combination of azithromycin and Rocephin. Patient is currently afebrile. Blood pressure is normotensive. She was reportedly fluid resuscitated with a total of 2 L normal saline bolus, and currently has normal saline infusing at 130 ML's per hour. Patient is currently sitting up in bed, on 4 L/m nasal cannula, in no acute distress. She denies any further vomiting today, and is able to keep down clear liquids. Vital signs are stable at this time. The patient is seen today 06/28/2023 in follow-up on the selective care unit. She is currently sitting up in a chair. Awake and alert in no acute distress. She is maintaining O2 saturations in the 90s on 4 L/m per nasal cannula. She remains on a Cardizem drip at 10 mg per hour. Normal saline at 125 mg liters per hour. White count 19.8. Hemoglobin 9.3. Platelets 356. Sodium 122. Potassium 4.8. Bicarb 20. BUN 906. Creatinine 15.1. Glucose 129. Urinalysis cloudy with large amount of blood and high WBCs and bacteria. She is continued on antibiotics in the form of ceftriaxone and azithromycin. Objective - Vital Signs Vital signs: Vital Signs Temp 97.6 F 06/28/23 08:00 Pulse 76 06/28/23 09:14 Resp 21 06/28/23 08:00 BP 135/85 06/28/23 08:00 Pulse Ox 94 L 06/28/23 08:00 FiO2 Intake & Output 06/27/23 06/28/23 06/28/23 18:59 06:59 18:59 Intake Total 200 Output Total 30 Balance 200 -30 Weight 127 kg Intake: Oral 200 Output: Urine 30 Other: Voiding Method Toilet Toilet Toilet # Voids 2 1 # Bowel Movements 1 2 - Exam GENERAL EXAM: Alert, 63-year-old obese female, on 4 L nasal cannula, up in a chair, comfortable in no apparent distress. HEAD: Normocephalic and atraumatic EYES: Normal reaction of pupils, equal size. NOSE: Clear with pink turbinates. THROAT: No erythema or exudates. NECK: No masses, no JVD. CHEST: No chest wall deformity. LUNGS: Equal air entry with inspiratory right posterior crackles. No wheeze, rhonchi or dullness. No conversational dyspnea or accessory muscle use.. CVS: S1 and S2 normal with no audible murmur, regular rhythm. No extra heart sounds ABDOMEN: Obese abdomen, no hepatosplenomegaly, active bowel sounds, no guarding or rigidity. SPINE: No scoliosis or deformity SKIN: No rashes CENTRAL NERVOUS SYSTEM: No focal deficits, tone is normal in all 4 extremities. EXTREMITIES: There is no peripheral edema, clubbing, or cyanosis. Peripheral pulses are intact. - Labs CBC & Chem 7: 06/28/23 08:40 06/28/23 08:40 Labs: Abnormal Lab Results - Last 24 Hours (Table) 06/27/23 06/27/23 06/28/23 Range/Units 08:44 15:11 00:44 WBC (3.8-10.6) k/uL RBC (3.80-5.40) m/uL Hgb (11.4-16.0) gm/dL Hct (34.0-46.0) % Sodium 123 L (137-145) mmol/L Chloride 86 L (98-107) mmol/L Carbon Dioxide 19 L (22-30) mmol/L BUN 101 H* (7-17) mg/dL Creatinine 14.89 H* (0.52-1.04) mg/dL Glucose (74-99) mg/dL Alkaline Phosphatase 144 H (38-126) U/L Total Protein (6.3-8.2) g/dL Albumin 3.2 L (3.5-5.0) g/dL Procalcitonin 0.74 H (0.02-0.09) ng/mL Urine Appearance Cloudy H (Clear) Urine Protein 3+ H (Negative) Urine Glucose (UA) Trace H (Negative) Urine Blood Large H (Negative) Ur Leukocyte Esterase Small H (Negative) Urine RBC >182 H (0-5) /hpf Urine WBC 11 H (0-5) /hpf Ur Squamous Epith Cells 20 H (0-4) /hpf Urine Bacteria Few H (None) /hpf 06/28/23 06/28/23 Range/Units 08:40 08:40 WBC 19.8 H (3.8-10.6) k/uL RBC 3.12 L (3.80-5.40) m/uL Hgb 9.3 L (11.4-16.0) gm/dL Hct 27.6 L (34.0-46.0) % Sodium 122 L (137-145) mmol/L Chloride 84 L (98-107) mmol/L Carbon Dioxide 20 L (22-30) mmol/L BUN 106 H* (7-17) mg/dL Creatinine 15.14 H* (0.52-1.04) mg/dL Glucose 129 H (74-99) mg/dL Alkaline Phosphatase 128 H (38-126) U/L Total Protein 6.0 L (6.3-8.2) g/dL Albumin 3.0 L (3.5-5.0) g/dL Procalcitonin (0.02-0.09) ng/mL Urine Appearance (Clear) Urine Protein (Negative) Urine Glucose (UA) (Negative) Urine Blood (Negative) Ur Leukocyte Esterase (Negative) Urine RBC (0-5) /hpf Urine WBC (0-5) /hpf Ur Squamous Epith Cells (0-4) /hpf Urine Bacteria (None) /hpf Assessment and Plan Assessment: Acute hypoxemic respiratory failure, on 4 L/m nasal cannula, possibly secondary to right middle lobe infiltrate/pneumonia as reported from outside facility, currently being treated on empiric antibiotics. Follow-up chest x-ray reveals right midlung patchy airspace opacity. Pro-calcitonin 0.74. Remains on ceftriaxone and azithromycin. Suspect acute gastroenteritis and dehydration Leukocytosis secondary to above Acute kidney injury, creatinine 15.14 Urinary tract infection, cultures pending Acute anion gap metabolic acidosis Hyponatremia, related to hypovolemia Hyperkalemia, improved, received lokelma Hyperphosphatemia New-onset atrial fibrillation with RVR, initiated on Cardizem drip Essential hypertension Hyperlipidemia Morbid obesity, with a BMI of 37 kg/m he Plan: The patient was seen and evaluated Chest x-ray, medications and labs reviewed Continue antibiotics, bronchodilators Patient may need renal replacement therapy Remains on a bicarb drip Remains on a Cardizem drip Neurology and cardiology following Follow-up chest x-ray in a.m. Titrate the FiO2 as tolerated We will continue to follow I have personally seen and examined the patient, performed the documentation and the assessment and plan as written. Number of minutes spent on the visit: 10.
[2023-06-28] MEDS ORDERED: HEPARIN SODIUM 1,000 UN/ML (10ML VL) IV PRN (11:59)
[2023-06-28 12:55] LABS: INR 1.2 (<1.2); Partial Thromboplastin Time 29.3 sec (22.0-30.0); Prothrombin Time 11.9 sec (9.0-12.0)
--- NOTE | 2023-06-28 14:01 | P.PN ---
Subjective Patient is seen for follow-up for acute kidney injury. She continues to feel short of breath. No significant urine output documented. Labs him back with a creatinine of 15.1 today. There is no improvement in renal function therefore we will proceed with renal replacement therapy. Patient and her are agreeable. Objective - Vital Signs Vital signs: Vital Signs Temp 97.5 F L 06/28/23 12:00 Pulse 116 H 06/28/23 12:00 Resp 20 06/28/23 12:00 BP 133/82 06/28/23 12:00 Pulse Ox 95 06/28/23 12:00 FiO2 Intake & Output 06/27/23 06/28/23 06/28/23 18:59 06:59 18:59 Intake Total 200 Output Total 30 Balance 200 -30 Weight 127 kg Intake: Oral 200 Output: Urine 30 Other: Voiding Method Toilet Toilet Toilet # Voids 2 1 # Bowel Movements 1 2 - Exam Patient is awake, comfortable, no acute distress Examination of the heart S1 and S2 Examination of the lungs bilateral breath sounds are heard Abdomen is soft nontender Examination of lower extremities shows no significant edema. 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 - Labs CBC & Chem 7: 06/28/23 08:40 06/28/23 08:40 Labs: Abnormal Lab Results - Last 24 Hours (Table) 06/27/23 06/27/23 06/28/23 Range/Units 08:44 15:11 00:44 WBC (3.8-10.6) k/uL RBC (3.80-5.40) m/uL Hgb (11.4-16.0) gm/dL Hct (34.0-46.0) % INR (<1.2) Sodium 123 L (137-145) mmol/L Chloride 86 L (98-107) mmol/L Carbon Dioxide 19 L (22-30) mmol/L BUN 101 H* (7-17) mg/dL Creatinine 14.89 H* (0.52-1.04) mg/dL Glucose (74-99) mg/dL Alkaline Phosphatase 144 H (38-126) U/L Total Protein (6.3-8.2) g/dL Albumin 3.2 L (3.5-5.0) g/dL Procalcitonin 0.74 H (0.02-0.09) ng/mL Urine Appearance Cloudy H (Clear) Urine Protein 3+ H (Negative) Urine Glucose (UA) Trace H (Negative) Urine Blood Large H (Negative) Ur Leukocyte Esterase Small H (Negative) Urine RBC >182 H (0-5) /hpf Urine WBC 11 H (0-5) /hpf Ur Squamous Epith Cells 20 H (0-4) /hpf Urine Bacteria Few H (None) /hpf 06/28/23 06/28/23 06/28/23 Range/Units 08:40 08:40 12:20 WBC 19.8 H (3.8-10.6) k/uL RBC 3.12 L (3.80-5.40) m/uL Hgb 9.3 L (11.4-16.0) gm/dL Hct 27.6 L (34.0-46.0) % INR 1.2 H (<1.2) Sodium 122 L (137-145) mmol/L Chloride 84 L (98-107) mmol/L Carbon Dioxide 20 L (22-30) mmol/L BUN 106 H* (7-17) mg/dL Creatinine 15.14 H* (0.52-1.04) mg/dL Glucose 129 H (74-99) mg/dL Alkaline Phosphatase 128 H (38-126) U/L Total Protein 6.0 L (6.3-8.2) g/dL Albumin 3.0 L (3.5-5.0) g/dL Procalcitonin (0.02-0.09) ng/mL Urine Appearance (Clear) Urine Protein (Negative) Urine Glucose (UA) (Negative) Urine Blood (Negative) Ur Leukocyte Esterase (Negative) Urine RBC (0-5) /hpf Urine WBC (0-5) /hpf Ur Squamous Epith Cells (0-4) /hpf Urine Bacteria (None) /hpf Assessment and Plan Assessment: 1. Acute kidney injury, ATN currently oliguric. No evidence of obstruction. UA shows 3+ protein and large blood, WBCs 11. Rule out underlying GN. 2. Right lung pneumonia maintained on antibiotics 3. Hyperkalemia associated with acute kidney injury 4. Anion-gap metabolic acidosis secondary to advanced renal failure. 5. Anemia rule out iron deficiency 6. Hyperphosphatemia secondary to advanced renal failure Plan: Proceed with hemodialysis today and vascular surgery consult. Patient and her are agreeable. Continue IV bicarb. Decrease rate. Add phosphate binders when patient is eating Patient is advised to avoid use of NSAIDs. Continue with antibiotics Add phosphate binders with food Order baseline serologies for workup of acute GN.
--- NOTE | 2023-06-28 14:19 | P.PN ---
Subjective Progress Note Date: 06/28/23 patient is 63-year-old lady with past medical history significant for hypertension, who was a transfer from [facility] after initially presenting there for nausea vomiting and diarrhea. Patient stated that she has been having these symptom for at least 1 week. Patient has been having reduced appetite, having persistent nausea and vomiting. Also complaining of shortness of breath. No complaint of fever or chills. Patient presented to previous facility.,She had workup done and was found to be in acute kidney injury. CT abdominal pelvis done there showed features concerning for pneumonia. Patient was transferred to [facility] Initial lab work done in the ER showed WBC 17.7, hemoglobin 10.2, platelet count 445, sodium 122, potassium 5, BUN 100, creatinine 14.7, phosphorus 9.9, magnesium 2.2 Patient was admitted to medicine service 06/28. Patient seen and examined. Blood work done this morning showed WBC 19.8, hemoglobin 3.3, sodium 122, BUN 106, creatinine 15.14. Patient went into A. fib with RVR, currently on Cardizem drip Discussed with nephrology, and they recommended starting patient on renal replacement therapy REVIEW OF SYSTEMS: CONSTITUTIONAL: No fever, no malaise,. CARDIOVASCULAR: No chest pain, no palpitations, no syncope. PULMONARY: Complaining of shortness of breath on exertion GASTROINTESTINAL: No diarrhea, no nausea, no vomiting, no abdominal pain. NEUROLOGICAL: No headaches, no weakness, PHYSICAL EXAMINATION: GENERAL: The patient is alert and oriented x3, not in any acute distress. Well developed, well nourished. HEENT: Pupils are round and equally reacting to light. EOMI. No scleral icterus. No conjunctival pallor. Normocephalic, atraumatic. No pharyngeal erythema. No thyromegaly. CARDIOVASCULAR: S1 and S2 present. No murmurs, rubs, or gallops. PULMONARY: Diminished breath sounds at the bases bilaterally, no crackles ABDOMEN: Soft, nontender, nondistended, normoactive bowel sounds. No palpable organomegaly. MUSCULOSKELETAL: No joint swelling or deformity. EXTREMITIES: No cyanosis, clubbing, or pedal edema. NEUROLOGICAL: Gross neurological examination did not reveal any focal deficits. SKIN: No rashes. Assessment and plan Acute kidney injury A. fib with RVR Hyperphosphatemia Hyponatremia Bacterial pneumonia Hypertension Monitor vital signs Monitor CBC Monitor CMP Strict I's and O's Daily weights Avoid nephrotoxic agents Continue IV fluids Continue IV Rocephin and azithromycin Continue Cardizem drip. Vascular surgery consulted for dialysis catheter placement Follow-up on pulmonary recommendations Follow-up on nephrology recommendations, started on renal replacement therapy Labs and medication were reviewed.. Continue same treatment. Continue with sy mptomatic treatment. Resume home medication. Monitor labs and vitals. DVT and GI prophylaxis. Further recommendations as per clinical course of the patient Dictation was produced using [employer] dictation software. please excuse any grammatical, word or spelling errors. Objective - Vital Signs Vital signs: Vital Signs Temp 97.5 F L 06/28/23 12:00 Pulse 116 H 06/28/23 12:00 Resp 20 06/28/23 12:00 BP 133/82 06/28/23 12:00 Pulse Ox 95 06/28/23 12:00 FiO2 Intake & Output 06/27/23 06/28/23 06/28/23 18:59 06:59 18:59 Intake Total 200 Output Total 30 Balance 200 -30 Weight 127 kg Intake: Oral 200 Output: Urine 30 Other: Voiding Method Toilet Toilet Toilet # Voids 2 1 # Bowel Movements 1 2 - Labs CBC & Chem 7: 06/28/23 08:40 06/28/23 08:40 Labs: Abnormal Lab Results - Last 24 Hours (Table) 06/27/23 06/27/23 06/28/23 Range/Units 08:44 15:11 00:44 WBC (3.8-10.6) k/uL RBC (3.80-5.40) m/uL Hgb (11.4-16.0) gm/dL Hct (34.0-46.0) % INR (<1.2) Sodium 123 L (137-145) mmol/L Chloride 86 L (98-107) mmol/L Carbon Dioxide 19 L (22-30) mmol/L BUN 101 H* (7-17) mg/dL Creatinine 14.89 H* (0.52-1.04) mg/dL Glucose (74-99) mg/dL Alkaline Phosphatase 144 H (38-126) U/L Total Protein (6.3-8.2) g/dL Albumin 3.2 L (3.5-5.0) g/dL Procalcitonin 0.74 H (0.02-0.09) ng/mL Urine Appearance Cloudy H (Clear) Urine Protein 3+ H (Negative) Urine Glucose (UA) Trace H (Negative) Urine Blood Large H (Negative) Ur Leukocyte Esterase Small H (Negative) Urine RBC >182 H (0-5) /hpf Urine WBC 11 H (0-5) /hpf Ur Squamous Epith Cells 20 H (0-4) /hpf Urine Bacteria Few H (None) /hpf 06/28/23 06/28/23 06/28/23 Range/Units 08:40 08:40 12:20 WBC 19.8 H (3.8-10.6) k/uL RBC 3.12 L (3.80-5.40) m/uL Hgb 9.3 L (11.4-16.0) gm/dL Hct 27.6 L (34.0-46.0) % INR 1.2 H (<1.2) Sodium 122 L (137-145) mmol/L Chloride 84 L (98-107) mmol/L Carbon Dioxide 20 L (22-30) mmol/L BUN 106 H* (7-17) mg/dL Creatinine 15.14 H* (0.52-1.04) mg/dL Glucose 129 H (74-99) mg/dL Alkaline Phosphatase 128 H (38-126) U/L Total Protein 6.0 L (6.3-8.2) g/dL Albumin 3.0 L (3.5-5.0) g/dL Procalcitonin (0.02-0.09) ng/mL Urine Appearance (Clear) Urine Protein (Negative) Urine Glucose (UA) (Negative) Urine Blood (Negative) Ur Leukocyte Esterase (Negative) Urine RBC (0-5) /hpf Urine WBC (0-5) /hpf Ur Squamous Epith Cells (0-4) /hpf Urine Bacteria (None) /hpf
--- NOTE | 2023-06-28 14:55 | P.CRDCN ---
History of Present Illness Consult date: 06/28/23 Consult reason: atrial fibrillation (New onset) History of present illness: History of present illness: This is a 63 year old female with no previous cardiac history, does not follow with a hop weigher. She has a past medical history of hypertension, hyperlipidemia, obesity, history of tobacco use. We have been asked to evaluate the patient for new onset atrial fibrillation. Patient gives history that she had vomiting and diarrhea for more than a week was unable to eat or drink anything and initially presented to a local hospital. Patient was found to be in acute kidney injury was transferred to [facility] for further evaluation and tr eatment. Patient also was started on IV antibiotics for pneumonia. She is status post 2 L of IV fluid and continues on IV fluids 130 mL per hour. Around 4:00 this morning, patient went into atrial fibrillation in the 170s and was given a Cardizem bolus followed by a drip at 10 mg per hour and her Lopressor 50 mg twice daily was given early at 4 AM. At the time of this evaluation, patient's heart rate is running in the 110s to 120s. She states her vomiting has improved but she continues to have diarrhea. EKG sinus rhythm, #2 atrial fibrillation with ventricular rate of 150 Chest x-ray: Right midlung patchy airspace opacities concerning for pneumonia Woman WBC 19.8, hemoglobin 9.3, platelet count 356. INR 1.2. Sodium 122, potassium initially 6.3 now 4.8. CO2 20, BUN 106, creatinine 15.1. Blood sugar 129. Phosphorus 10.6. Alkaline phosphatase 128. Influenza A, influenza B, Covid 19 not detected Home cardiac medications: Metoprolol tartrate 50 mg twice daily Review Of Systems: At the time of my evaluation: Constitutional: No fever, no chills. + weakness, + fatigue. EENT: No headache. Lungs: No shortness of breath, cough, no sputum production. No wheezing. Cardiovascular: No chest pain, no lower extremity edema. No palpitations. No paroxysmal nocturnal dyspnea. No orthopnea. No lightheadedness or dizziness. No syncopal episodes. Abdominal: No abdominal pain. No nausea, vomiting. + diarrhea. No constipation. No bloody or tarry stools. Musculoskeletal: No myalgias. + muscle weakness, no frequent falls. Integumentary: No wounds. No rash. Neurologic: No aphasia. No facial droop. No change in mentation. Physical examination: Gen: This is a morbidly obese 63-year-old female. She is resting in a chair and appears to be in no acute respiratory distress. VS: reviewed HEENT: Head is atraumatic, normocephalic. Pupils equal, round. Sclerae is anicteric. NECK: Supple. No JVD. LUNGS: Clear to auscultation. No wheezes or rhonchi. No intercostal retractions. HEART: Irregular rate and rhythm. No murmur. ABDOMEN: Soft No tenderness. EXTREMITIES: No pedal edema. No calf tenderness. NEUROLOGICAL: Patient is awake, alert and oriented x3. Assessment: A. fib with RVR, paroxysmal atrial fibrillation Acute hypoxic respiratory failure secondary to possible pneumonia Gastroenteritis Acute kidney injury Metabolic acidosis Hyponatremia Hyperkalemia Hyperphosphatemia Hypertension Hyperlipidemia Urinary tract infection Leukocytosis Plan: Continue Cardizem drip at 10 mg per hour Start patient on heparin drip after dialysis catheter is inserted Continue Lopressor 50 mg twice daily Obtain 2-D echocardiogram and Doppler study to assess cardiac structure and function Further recommendations to follow based upon clinical course Thank you kindly for this consultation. Nurse practitioner note has been reviewed, I agree with documented findings and plan of care. Patient was seen and examined. Past Medical History Past Medical History: Hyperlipidemia, Hypertension Additional Past Medical History / Comment(s): colon polup, diverticulosis, kidney stone History of Any Multi-Drug Resistant Organisms: None Reported Past Surgical History: Section, Hysterectomy, Tubal Ligation Additional Past Surgical History / Comment(s): colonoscopy 2014 Past Anesthesia/Blood Transfusion Reactions: No Reported Reaction Past Psychological History: No Psychological Hx Reported Smoking Status: Former smoker Past Alcohol Use History: None Reported Past Drug Use History: None Reported Medications and Allergies Home Medications Medication Instructions Recorded Confirmed Type Metoprolol Tartrate [Lopressor] 50 mg PO BID-W/MEALS 06/26/23 06/26/23 History Allergies Allergy/AdvReac Type Severity Reaction Status Date / Time bee venom protein (honey bee) Allergy Anaphylaxis Verified 06/26/23 18:53 morphine Allergy Rash/Hives Verified 06/26/23 18:53 bagged carrots AdvReac Nausea & Uncoded 06/26/23 18:52 Vomiting & Diarrhea bagged lettuce AdvReac Nausea & Uncoded 06/26/23 18:52 Vomiting & Diarrhea preservatives AdvReac Nausea & Uncoded 06/26/23 18:52 Vomiting & Diarrhea Physical Exam Vitals: Vital Signs Temp Pulse Pulse Pulse Resp BP Pulse Ox 06/28/23 12:00 97.5 F L 116 H 20 133/82 95 06/28/23 09:14 76 06/28/23 09:02 72 06/28/23 08:00 97.6 F 111 H 21 135/85 94 L 06/28/23 05:31 147 H 18 133/87 92 L 06/28/23 04:00 98.4 F 126 H 23 154/79 93 L 06/27/23 23:13 98.0 F 83 134/61 95 06/27/23 20:00 98.0 F 77 19 190/79 94 L 06/27/23 19:49 78 06/27/23 19:39 80 06/27/23 16:00 98.1 F 66 20 176/79 97 06/27/23 15:10 84 06/27/23 14:58 80 Intake and Output 06/27/23 06/28/23 06/28/23 22:59 06:59 14:59 Output Total 30 Balance -30 Output: Urine 30 Other: Voiding Method Toilet Toilet Toilet # Voids 1 # Bowel Movements 1 2 Weight 127 kg Results 06/28/23 08:40 06/28/23 08:40 Cardiac Enzymes 06/27/23 06/28/23 Range/Units 15:11 08:40 AST 24 25 (14-36) U/L Coagulation 06/28/23 Range/Units 12:20 PT 11.9 (9.0-12.0) sec APTT 29.3 (22.0-30.0) sec CBC 06/28/23 Range/Units 08:40 WBC 19.8 H (3.8-10.6) k/uL RBC 3.12 L (3.80-5.40) m/uL Hgb 9.3 L (11.4-16.0) gm/dL Hct 27.6 L (34.0-46.0) % Plt Count 356 (150-450) k/uL Comprehensive Metabolic Panel 06/27/23 06/28/23 Range/Units 15:11 08:40 Sodium 123 L 122 L (137-145) mmol/L Potassium 5.1 4.8 (3.5-5.1) mmol/L Chloride 86 L 84 L (98-107) mmol/L Carbon Dioxide 19 L 20 L (22-30) mmol/L BUN 101 H* 106 H* (7-17) mg/dL Creatinine 14.89 H* 15.14 H* (0.52-1.04) mg/dL Glucose 85 129 H (74-99) mg/dL Calcium 9.6 8.7 (8.4-10.2) mg/dL AST 24 25 (14-36) U/L ALT 25 24 (4-34) U/L Alkaline Phosphatase 144 H 128 H (38-126) U/L Total Protein 6.4 6.0 L (6.3-8.2) g/dL Albumin 3.2 L 3.0 L (3.5-5.0) g/dL Current Medications Generic Name Dose Route Start Last Admin Trade Name Freq PRN Reason Stop Dose Admin Acetaminophen 650 mg 06/28/23 00:43 06/28/23 00:59 Acetaminophen Tab 325 Mg Tab PO 650 mg Q6HR PRN Administration Fever and/ or Pain Albuterol/Ipratropium 3 ml 06/27/23 08:00 06/28/23 12:10 Ipratropium-Albuterol 3 Ml Neb INHALATION Not Given RT-QID NISHANT Albuterol/Ipratropium 3 ml 06/27/23 06:40 Ipratropium-Albuterol 3 Ml Neb INHALATION RT-Q2H PRN Shortness Of Breath Or Wheezing Heparin Sodium (Porcine) 0 unit 06/28/23 11:59 Heparin Sodium 1,000 Un/Ml (10ml Vl) IV PER PROTOCOL PRN Low PTT Protocol Ceftriaxone Sodium 2 gm/ 50 mls @ 100 mls/hr 06/27/23 09:00 06/28/23 08:10 Sodium Chloride IVPB 100 mls/hr Q24HR NISHANT Administration Protocol Azithromycin 500 mg/ Sodium 250 mls @ 250 mls/hr 06/27/23 09:00 06/28/23 08:09 Chloride IVPB 06/29/23 09:59 250 mls/hr DAILY NISHANT Administration Protocol Sodium Bicarbonate 150 ml/ 1,150 mls @ 60 mls/hr 06/27/23 10:30 06/28/23 13:25 Dextrose/Water IV Not Given .[id number] NISHANT Diltiazem HCl 125 mg/ Sodium 125 mls @ 10 mls/hr 06/28/23 05:15 06/28/23 05 :22 Chloride IV 10 mg/hr .[id number] NISHANT 10 mls/hr Administration 10 MG/HR Heparin Sodium/Sodium Chloride 250 mls @ 10 mls/hr 06/28/23 12:00 25,000 unit/ Sodium Chloride IV .Q24H [facility] Protocol 7.874 UNITS/KG/HR Metoprolol Tartrate 50 mg 06/27/23 08:30 06/28/23 04:46 Metoprolol Tartrate 50 Mg Tab PO 50 mg BID-W/MEALS NISHANT Administration Naloxone HCl 0.2 mg 06/26/23 20:26 Naloxone 0.4 Mg/Ml 1 Ml Vial IV Q2M PRN Opioid Reversal Ondansetron HCl 4 mg 06/26/23 20:26 Ondansetron 4 Mg/2 Ml Vial IVP Q8HR PRN Nausea And Vomiting Intake and Output 06/27/23 06/28/23 06/28/23 22:59 06:59 14:59 Output Total 30 Balance -30 Output: Urine 30 Other: Voiding Method Toilet Toilet Toilet # Voids 1 # Bowel Movements 1 2 Weight 127 kg 06/28/23 08:40 06/28/23 08:40
[2023-06-28] MEDS ORDERED: fentaNYL (PF) 50 MCG/1 ML VIAL IVP ONE (15:26)
[2023-06-28] MEDS ORDERED: MIDAZOLAM 2 MG/2 ML VIAL IVP ONE (15:26)
[2023-06-28] MEDS ORDERED: LIDOCAINE 1% INJ 10MG/ML (30 ML VIAL-PF) SQ ONE (15:30)
[2023-06-28] MEDS ORDERED: IV FLUID CONTINUATION 1,000 ML IV ONE (15:33)
[2023-06-28] MEDS ORDERED: HEPARIN SODIUM 1,000 UN/ML (10ML VL) IRRIGATION ONE (16:10)
[2023-06-28] MEDS: HEPARIN SOD,PORK IN 0.45% NACL 25,000 UNIT in 0.45% NACL 1 250ML.BAG IV SCH (16:44)
--- NOTE | 2023-06-28 17:06 | XR ---
EXAMINATION TYPE: XR chest 1V portable DATE OF EXAM: 06/28/2023 COMPARISON: 06/27/2023 INDICATION: Dialysis catheter placement TECHNIQUE: Single frontal view of the chest is obtained. FINDINGS: The heart size is normal. The pulmonary vasculature is prominent. Diffuse increased opacities through the right lung. Correlate for pulmonary edema. There is a double-lumen catheter on the right with the tips in the distal superior vena cava region. No pneumothorax is evident. IMPRESSION: 1. No pneumothorax postcatheter placement. Tips are within the superior vena cava region. 2. Increased opacity through the right lung. Correlate for pulmonary edema.
--- NOTE | 2023-06-28 17:56 | OP ---
OPERATIVE REPORT DATE OF SERVICE : PREOPERATIVE DIAGNOSIS: [id number] renal failure. POSTOPERATIVE DIAGNOSIS: [id number] renal failure. PROCEDURE PERFORMED: Ultrasound-guided dialysis catheter placed, right jugular approach. DESCRIPTION OF PROCEDURE: The patient was brought to the clinical laboratory aides teacher. Right side of the neck and chest were prepped, and drapes were applied in a sterile manner. Ultrasound-guided micropuncture was introduced into the right jugular vein. Micropuncture guidewire was passed, and 4- Trinidadian dilator was advanced on top of the guidewire. Then, we created a tunnel. Through the tunnel, we brought 19 cm dialysis catheter. Then, we passed a guidewire, which was parked in the inferior vena cava. Dilator was advanced on top of the guidewire. Then, the sheath was advanced on top of the guidewire. Through the sheath, we introduced the dialysis catheter. Tip of the catheter was in the superior vena cava and atrial junction. Flushed with heparin saline and hep-locked. Secured with 3-0 nylon. Dressing was applied. The patient tolerated the procedure well. PLAN: X-ray of the chest. MMODL / IJN: [id number] /
[2023-06-29 02:26] LABS: Immunoglobulin M 45.9 mg/dL (40.0-280.0)
[2023-06-29 03:44] LABS: Hepatitis B Surface Antigen Nonreactive; Hepatitis C IgG Antibody Nonreactive
[2023-06-29 03:45] LABS: Hepatitis B Surface AB- Quant 7.6 mIU/mL
[2023-06-29 04:12] LABS: DNA Double-Stranded Negative (Negative)
[2023-06-29] MEDS: DILTIAZEM 125 MG in SODIUM CHLORIDE 0.9% 100 ML IV SCH ×2 (06:30→14:02)
[2023-06-29] MEDS: METOPROLOL TARTRATE 50 MG TAB PO SCH ×2 (06:30→16:39)
--- NOTE | 2023-06-29 08:06 | IR ---
EXAMINATION TYPE: IR cvc insert central tunneled DATE OF EXAM: 06/28/2023 COMPARISON: NONE HISTORY: Fluoroscopy time. Fluoroscopy was provided to the referring clinician.
[2023-06-29] MEDS: IPRATROPIUM-ALBUTEROL 3 ML NEB INHALATION SCH ×5 (08:34→21:14)
[2023-06-29] MEDS: DEXTROSE 5% IN WATER 1,000 ML with SODIUM BICARB (1 MEQ/ML) 150 ML IV SCH (08:35)
--- NOTE | 2023-06-29 08:53 | XR ---
EXAMINATION TYPE: XR chest 1V portable DATE OF EXAM: 06/29/2023 7:16 AM COMPARISON: 06/28/2023 TECHNIQUE: XR chest 1V portable Frontal view of the chest. CLINICAL INDICATION:Female, 63 years old with history of Pneumonia; FINDINGS: Lungs/Pleura: Stable right-sided airspace opacities. There is no evidence of pleural effusion, focal consolidation, or pneumothorax. Pulmonary vascularity: Unremarkable. Heart/mediastinum: Cardiomediastinal silhouette is unremarkable. Musculoskeletal: No acute osseous pathology. Right central venous catheter tip in stable position. IMPRESSION: Similar right-sided airspace opacities concerning for pneumonia versus edema.
[2023-06-29 10:18] LABS: Basophils # (A) 0.1 k/uL (0-0.2); Basophils % (A) 1 %; Eosinophils # (A) 0.1 k/uL (0-0.7); Eosinophils % (A) 1 %; HCT 27.1 % (34.0-46.0); HGB 9.1 gm/dL (11.4-16.0); Lymphocytes # (A) 1.1 k/uL (1.0-4.8); Lymphocytes % (A) 6 %; MCH 29.8 pg (25.0-35.0); MCHC 33.6 g/dL (31.0-37.0); MCV 88.8 fL (80.0-100.0); Mean Platelet Volume 6.9; Monocytes # (A) 0.6 k/uL (0-1.0); Monocytes % (A) 3 %; Neutrophils % (A) 89 %; Platelet Count 363 k/uL (150-450); RBC 3.05 m/uL (3.80-5.40); RDW 14.1 % (11.5-15.5)
[2023-06-29 10:19] LABS: INR 1.1 (<1.2); Prothrombin Time 11.4 sec (9.0-12.0)
[2023-06-29] MEDS ORDERED: FUROSEMIDE 10 MG/ML 10 ML VIAL IV STA (11:07)
--- NOTE | 2023-06-29 11:12 | CA ---
Transthoracic Echo Report Name: Trisha Jones Age: 63 Gender: F : 1960 Exam Date: 06/29/2023 09:04 Exam Location: [facility] Ht (in): 70 Wt (lb): 279 Ordering Physician: July Payne Attending/Referring Phys: [id number], Kerry Dye House Worker Milo Jaime Procedure CPT: Indications: LVF Cardiac Hx: Technical Quality: Fair Contrast 1: Total Dose (mL): Contrast 2: Total Dose (mL): MEASUREMENTS (Male / Female) Normal Values 2D ECHO LV Diastolic Diameter PLAX 4.1 cm 4.2 - 5.9 / 3.9 - 5.3 cm IVS Diastolic Thickness 1.1 cm 0.6 - 1.0 / 0.6 - 0.9 cm LVPW Diastolic Thickness 1.1 cm 0.6 - 1.0 / 0.6 - 0.9 cm LV Relative Wall Thickness 0.5 RV Internal Dim ED PLAX 3.4 cm LVOT Diameter 2.1 cm Aortic Root Diameter 2.6 cm LA Systolic Diameter LX 2.8 cm 3.0 - 4.0 / 2.7 - 3.8 cm LV Diastolic Volume MOD BP 62.3 cm??? 67 - 155 / 56 - 104 cm??? LV Systolic Volume MOD BP 23.4 cm??? 22 - 58 / 19 - 49 cm??? LV Ejection Fraction MOD BP 62.4 % >= 55 % LV Cardiac Index MOD BP 973.4 cm???/min???m??? LV Diastolic Volume MOD 4C 65.7 cm??? LV Systolic Volume MOD 4C 16.3 cm??? LV Ejection Fraction MOD 4C 75.2 % LV Cardiac Index MOD 4C 1236.6 cm???/min???m??? LV Diastolic Length 4C 7.3 cm LV Systolic Length 4C 5.6 cm LV Diastolic Volume MOD 2C 57.9 cm??? LV Systolic Volume MOD 2C 28.8 cm??? LV Ejection Fraction MOD 2C 50.2 % LV Cardiac Index MOD 2C 727.6 cm???/min???m??? LV Diastolic Length 2C 7.5 cm LV Systolic Length 2C 6.7 cm LA Volume 33.0 cm??? 18 - 58 / 22 - 52 cm??? DOPPLER AV Peak Velocity 174.8 cm/s AV Peak Gradient 12.2 mmHg AI Peak Velocity 201.4 cm/s AI Peak Gradient 16.2 mmHg AI Pressure Half Time 429.3 ms LVOT Peak Velocity 127.1 cm/s LVOT Peak Gradient 6.5 mmHg AV Area Cont Eq pk 2.4 cm??? MV Peak Velocity 118.2 cm/s MV Peak Gradient 5.6 mmHg MV Mean Velocity 57.1 cm/s MV Mean Gradient 1.7 mmHg MV Velocity Time Integral 44.2 cm MR Peak Velocity 430.0 cm/s MR Peak Gradient 74.0 mmHg Mitral E Point Velocity 124.0 cm/s Mitral A Point Velocity 59.4 cm/s Mitral E to A Ratio 2.1 MV Deceleration Time 258.4 ms TR Peak Velocity 271.2 cm/s TR Peak Gradient 29.4 mmHg Right Ventricular Systolic Press 36.9 mmHg FINDINGS Left Ventricle Mildly increased septal wall thickness. Mildly increased posterior wall thickness. Normal LV size. Normal Left ventricular size, wall thickness, systolic function with no obvious regional wall motion abnormalities. Normal Left ventricular diastolic filling pattern. Left ventricular ejection fraction is estimated at 50-51__ %. Right Ventricle Normal right ventricular size. RVSP=54mmhg. Right Atrium Normal right atrial size. Left Atrium Normal left atrial size. Mitral Valve Mitral valve thickened. Mild MR. Aortic Valve Trileaflet aortic valve. Mild AI. Tricuspid Valve Structurally normal tricuspid valve. Moderate TR. Pulmonic Valve Pulmonic valve not well visualized. No pulmonic regurgitation. Pericardium Normal pericardium. Aorta Normal size aortic root and proximal ascending aorta. CONCLUSIONS Normal LV function Mild mitral and aortic regurgitation Mild pulmonary hypertension Previewed by: Dr. Cale Krishna MD (Electronically Signed) Final Date: 29 June 2023 11:11
[2023-06-29] MEDS: HEPARIN SOD,PORK IN 0.45% NACL 25,000 UNIT in 0.45% NACL 1 250ML.BAG IV SCH (11:51)
[2023-06-29] MEDS: AZITHROMYCIN 500 MG in SODIUM CHLORIDE 0.9% 250 ML IVPB SCH (12:26)
--- NOTE | 2023-06-29 12:48 | P.PN ---
Subjective Patient is seen for follow-up for acute kidney injury. She continues to feel short of breath. No significant urine output documented. Started on hemodialysis on 06/28/2023. Patient is seen on hemodialysis today receiving her second treatment. UF increased to about 2-2.5 L Objective - Vital Signs Vital signs: Vital Signs Temp 97.6 F 06/29/23 12:34 Pulse 75 06/29/23 12:34 Resp 20 06/29/23 12:34 BP 170/75 06/29/23 12:34 Pulse Ox 99 06/29/23 11:22 FiO2 Intake & Output 06/28/23 06/29/23 06/29/23 18:59 06:59 18:59 Intake Total 164.167 598 783.788 Output Total 2200 1550 Balance 164.167 -1602 -766.212 Weight 124.5 kg Intake: IV 50 Intake, IV Titration 114.167 198 165.788 Amount Diltiazem 125 mg In 114.167 125 Sodium Chloride 0.9% 100 ml @ 10 MG/HR 10 mls/hr IV .[id number] NISHANT Rx#: [id number] Heparin Sod,Pork in 0.45% 73 165.788 NaCl 25,000 unit In 0.45 % NaCl 1 250ml.bag @ 7. 874 UNITS/KG/HR 10 mls/hr IV .Q24H NISHANT Rx#: [id number] Oral 118 Hemodialysis 400 500 Output: Urine 200 50 Hemodialysis 2000 1500 Other: Voiding Method Toilet Toilet Toilet # Voids 0 3 # Bowel Movements 2 1 - Exam Patient is awake, comfortable, no acute distress, short of breath Examination of the heart S1 and S2 Examination of the lungs bilateral breath sounds are heard Abdomen is soft nontender Examination of lower extremities shows trace edema. [employer] exam grossly intact - Labs CBC & Chem 7: 06/29/23 09:32 06/28/23 08:40 Labs: Abnormal Lab Results - Last 24 Hours (Table) 06/28/23 06/28/23 06/29/23 Range/Units 12:20 23:05 09:32 WBC 18.0 H (3.8-10.6) k/uL RBC 3.05 L (3.80-5.40) m/uL Hgb 9.1 L (11.4-16.0) gm/dL Hct 27.1 L (34.0-46.0) % Neutrophils # 16.0 H (1.3-7.7) k/uL INR 1.2 H (<1.2) APTT 33.6 H (22.0-30.0) sec 06/29/23 Range/Units 09:32 WBC (3.8-10.6) k/uL RBC (3.80-5.40) m/uL Hgb (11.4-16.0) gm/dL Hct (34.0-46.0) % Neutrophils # (1.3-7.7) k/uL INR (<1.2) APTT 42.0 H (22.0-30.0) sec Assessment and Plan Assessment: 1. Acute kidney injury, ATN currently oliguric. No evidence of obstruction. UA shows 3+ protein and large blood, WBCs 11. Rule out underlying GN. So far all serologies are negative. Urine output remains low started hemodialysis 06/28/2023 2. Right lung pneumonia maintained on antibiotics 3. Hyperkalemia associated with acute kidney injury 4. Anion-gap metabolic acidosis secondary to advanced renal failure. 5. Anemia rule out iron deficiency 6. Hyperphosphatemia secondary to advanced renal failure 7. Hyponatremia, hypovolemic from acute kidney injury. Expect improvement with hemodialysis. 8. Volume overload Plan: Hemodialysis today and then again in a.m. Add phosphate binders with meals Repeat labs this evening and again in a.m. DC bicarb drip Increase UF with dialysis Try IV Lasix Accurate I's and O's
--- NOTE | 2023-06-29 13:18 | P.PN ---
Subjective Progress Note Date: 06/29/23 I am seeing this patient in new consultation today 06/27/2023 after she was transferred from [facility] yesterday evening reportedly for pneumonia among other medical concerns. Patient is a 63-year-old white female past medical history significant for hypertension, hyperlipidemia, and obesity. De nies any significant pulmonary disease or being a tobacco smoker. Patient reportedly started to experience intractable nausea and vomiting, diarrhea, reduced appetite, and shortness of breath approximately one week ago. Patient did have a workup at [facility] which included a nonenhanced abdominal and pelvis CT, which was reportedly concerning for a right middle lobe infiltrate/pneumonia. No acute intra-abdominal abnormalities were reported. Patient denies any abdominal pain, constipation, bloody stools, or hematemesis. At the outside facility, the patient was also found to have acute kidney injury and multiple electrolyte abnormalities. She was reportedly taking ibuprofen for several days. BMP on arrival to our facility shows a sodium 122, potassium 5, chloride 83, serum bicarb 19, BUN 100, creatinine 14.72, glucose 72, phosphorus 9.9. No plans for hemodialysis at this time. Urinalysis at outside facility was not particularly concerning for UTI. Troponins were less than 0.012. CBC on arrival to our facility shows leukocytosis with a WBC count of 17.7, hemoglobin 10.2, hematocrit 29.4, chloride 445. The patient was started on a combination of azithromycin and Rocephin. Patient is currently afebrile. Blood pressure is normotensive. She was reportedly fluid resuscitated with a total of 2 L normal saline bolus, and currently has normal saline infusing at 130 ML's per hour. Patient is currently sitting up in bed, on 4 L/m nasal cannula, in no acute distress. She denies any further vomiting today, and is able to keep down clear liquids. Vital signs are stable at this time. The patient is seen today 06/28/2023 in follow-up on the selective care unit. She is currently sitting up in a chair. Awake and alert in no acute distress. She is maintaining O2 saturations in the 90s on 4 L/m per nasal cannula. She remains on a Cardizem drip at 10 mg per hour. Normal saline at 125 mg liters per hour. White count 19.8. Hemoglobin 9.3. Platelets 356. Sodium 122. Potassium 4.8. Bicarb 20. BUN 906. Creatinine 15.1. Glucose 129. Urinalysis cloudy with large amount of blood and high WBCs and bacteria. She is continued on antibiotics in the form of ceftriaxone and azithromycin. The patient is seen today 06/29/2023 in follow-up on the selective care unit. She is currently resting comfortably in bed. Awake and alert in no acute distress. Currently receiving hemodialysis. She had 1-1/2 L removed yesterday. The plan is for 1-1/2 L again today. She remains on a heparin drip. She is on a Cardizem drip at 5 mg per hour. She is receiving D5W with 3 A of sodium bicarb at 60 ML's per hour. She is maintaining O2 saturations in the low 90s on 4 L/m per nasal cannula. White count 18.0. Hemoglobin 9.1. INR 1.1. She is continued on DuoNeb inhalations. Antibiotics in the form of ceftriaxone. ProCalcitonin 0.74. Chest x-ray reveals similar right-sided airspace opacity. Echocardiogram revealed preserved left ventricular systolic function with no significant valvular heart disease. Objective - Vital Signs Vital signs: Vital Signs Temp 97.6 F 06/29/23 12:34 Pulse 75 06/29/23 12:34 Resp 20 06/29/23 12:34 BP 170/75 06/29/23 12:34 Pulse Ox 99 06/29/23 11:22 FiO2 Intake & Output 06/28/23 06/29/23 06/29/23 18:59 06:59 18:59 Intake Total 164.167 598 783.788 Output Total 2200 1550 Balance 164.167 -1602 -766.212 Weight 124.5 kg Intake: IV 50 Intake, IV Titration 114.167 198 165.788 Amount Diltiazem 125 mg In 114.167 125 Sodium Chloride 0.9% 100 ml @ 10 MG/HR 10 mls/hr IV .[id number] NISHANT Rx#: [id number] Heparin Sod,Pork in 0.45% 73 165.788 NaCl 25,000 unit In 0.45 % NaCl 1 250ml.bag @ 7. 874 UNITS/KG/HR 10 mls/hr IV .Q24H NISHANT Rx#: [id number] Oral 118 Hemodialysis 400 500 Output: Urine 200 50 Hemodialysis 1999 1500 Other: Voiding Method Toilet Toilet Toilet # Voids 0 3 # Bowel Movements 2 1 - Exam GENERAL EXAM: Alert, very pleasant 63-year-old obese female, on 4 L nasal cannula, comfortable in no apparent distress. HEAD: Normocephalic and atraumatic EYES: Normal reaction of pupils, equal size. NOSE: Clear with pink turbinates. THROAT: No erythema or exudates. NECK: No masses, no JVD. CHEST: No chest wall deformity. LUNGS: Equal air entry with inspiratory right posterior crackles. No wheeze, rhonchi or dullness. CVS: S1 and S2 normal with no audible murmur, regular rhythm. No extra heart sounds ABDOMEN: Obese abdomen, no hepatosplenomegaly, active bowel sounds, no guarding or rigidity. SPINE: No scoliosis or deformity SKIN: No rashes CENTRAL NERVOUS SYSTEM: No focal deficits, tone is normal in all 4 extremities. EXTREMITIES: There is 1-2+ peripheral edema, clubbing, or cyanosis. Peripheral pulses are intact. - Labs CBC & Chem 7: 06/29/23 09:32 06/28/23 08:40 Labs: Abnormal Lab Results - Last 24 Hours (Table) 06/28/23 06/29/23 06/29/23 Range/Units 23:05 09:32 09:32 WBC 18.0 H (3.8-10.6) k/uL RBC 3.05 L (3.80-5.40) m/uL Hgb 9.1 L (11.4-16.0) gm/dL Hct 27.1 L (34.0-46.0) % Neutrophils # 16.0 H (1.3-7.7) k/uL APTT 33.6 H 42.0 H (22.0-30.0) sec Assessment and Plan Assessment: Acute hypoxemic respiratory failure, on 4 L/m nasal cannula, possibly secondary to right middle lobe infiltrate/pneumonia as reported from outside facility, currently being treated on empiric antibiotics. Follow-up chest x-ray reveals right midlung patchy airspace opacity. Pro-calcitonin 0.74. Remains on ceftriaxone and completed azithromycin. Suspect acute gastroenteritis and dehydration Leukocytosis secondary to above Acute kidney injury, creatinine 15.14 here initiated on hemodialysis 06/28/2023 Urinary tract infection, cultures pending Acute anion gap metabolic acidosis Hyponatremia, related to hypovolemia Hyperkalemia, improved, received lokelma Hyperphosphatemia New-onset atrial fibrillation with RVR, initiated on Cardizem drip Essential hypertension Hyperlipidemia Morbid obesity, with a BMI of 37 kg/m he Plan: The patient was seen and evaluated Chest x-ray, medications and labs reviewed Continue antibiotics, bronchodilators Receiving renal replacement therapy Remains on a bicarb drip Remains on a Cardizem drip Remains on a heparin drip Titrate the FiO2 as tolerated We will continue to follow I have personally seen and examined the patient, performed the documentation and the assessment and plan as written. Number of minutes spent on the visit: 10.
--- NOTE | 2023-06-29 13:36 | P.PN ---
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 She has a past medical history of hypertension, hyperlipidemia, obesity, history of tobacco use. We have been asked to evaluate the patient for new onset atrial fibrillation. Patient gives history that she had vomiting and diarrhea for more than a week was unable to eat or drink anything and initially presented to a local hospital. Patient was found to be in acute kidney injury was transferred to [facility] for further evaluation and treatment. Patient also was started on IV antibiotics for pneumonia. She is status post 2 L of IV fluid and continues on IV fluids 130 mL per hour. Around 4:00 this morning, patient went into atrial fibrillation in the 170s and was given a Cardizem bolus followed by a drip at 10 mg per hour and her Lopressor 50 mg twice daily was given early at 4 AM. At the time of this evaluation, patient's heart rate is running in the 110s to 120s. She states her vomiting has improved but she continues to have diarrhea. EKG sinus rhythm, #2 atrial fibrillation with ventricular rate of 150 Chest x-ray: Right midlung patchy airspace opacities concerning for pneumonia Woman WBC 19.8, hemoglobin 9.3, platelet count 356. INR 1.2. Sodium 122, potassium initially 6.3 now 4.8. CO2 20, BUN 106, creatinine 15.1. Blood sugar 129. Phosphorus 10.6. Alkaline phosphatase 128. Influenza A, influenza B, Covid 19 not detected Home cardiac medications: Metoprolol tartrate 50 mg twice daily 06/29 Patient started on dialysis yesterday with removal of 1.5 L with plan for the same today. She has been continued on IV Lasix. She remains on Cardizem drip as well as started on heparin drip following catheter insertion. Patient has converted to sinus rhythm. Echocardiogram reveals normal LV function, mild mitral and aortic regurgitation, mild pulmonary hypertension. Repeat chest x- ray reveals similar right-sided airspace opacities concerning for pneumonia versus edema. Blood pressures have been elevated 170/95, heart rate in the 70s and 80s. Pulse ox is 99% on 5 L, afebrile. Physical examination: Gen: This is a morbidly obese 63-year-old female. She is resting in a bed and appears to be in no acute respiratory distress. VS: reviewed HEENT: Head is atraumatic, normocephalic. Pupils equal, round. Sclerae is anicteric. NECK: Supple. No JVD. LUNGS: Clear to auscultation. No wheezes or rhonchi. No intercostal retractio ns. HEART: Irregular rate and rhythm. No murmur. ABDOMEN: Soft No tenderness. EXTREMITIES: 2+ pedal edema. No calf tenderness. Assessment: A. fib with RVR, paroxysmal atrial fibrillation Acute hypoxic respiratory failure secondary to possible pneumonia Gastroenteritis Acute kidney injury, started on HD 06/28. Metabolic acidosis Hyponatremia Hyperkalemia Hyperphosphatemia Hypertension Hyperlipidemia Urinary tract infection Leukocytosis Plan: Discontinue Cardizem drip Continue patient on heparin drip and will decide on oral anticoagulation tomorrow Continue Lopressor 50 mg twice daily Further recommendations to follow based upon clinical course Nurse practitioner note has been reviewed, I agree with documented findings and plan of care. Patient was seen and examined. Objective - Vital Signs Vital signs: Vital Signs Temp 97.8 F 06/29/23 08:29 Pulse 64 06/29/23 08:49 Resp 22 06/29/23 08:40 BP 157/83 06/29/23 08:29 Pulse Ox 90 L 06/29/23 08:29 FiO2 Intake & Output 06/28/23 06/29/23 06/29/23 18:59 06:59 18:59 Intake Total 164.167 598 263.235 Output Total 2200 50 Balance 164.167 -1602 213.235 Weight 124.5 kg Intake: IV 50 Intake, IV Titration 114.167 198 145.235 Amount Diltiazem 125 mg In 114.167 125 Sodium Chloride 0.9% 100 ml @ 10 MG/HR 10 mls/hr IV .[id number] NISHANT Rx#: [id number] Heparin Sod,Pork in 0.45% 73 145.235 NaCl 25,000 unit In 0.45 % NaCl 1 250ml.bag @ 7. 874 UNITS/KG/HR 10 mls/hr IV .Q24H NISHANT Rx#: [id number] Oral 118 Hemodialysis 400 Output: Urine 200 50 Hemodialysis 2000 Other: Voiding Method Toilet Toilet Toilet # Voids 0 3 # Bowel Movements 2 1 - Labs CBC & Chem 7: 06/29/23 09:32 06/28/23 08:40 Labs: Abnormal Lab Results - Last 24 Hours (Table) 06/28/23 06/28/23 06/29/23 Range/Units 12:20 23:05 09:32 WBC 18.0 H (3.8-10.6) k/uL RBC 3.05 L (3.80-5.40) m/uL Hgb 9.1 L (11.4-16.0) gm/dL Hct 27.1 L (34.0-46.0) % Neutrophils # 16.0 H (1.3-7.7) k/uL INR 1.2 H (<1.2) APTT 33.6 H (22.0-30.0) sec 06/29/23 Range/Units 09:32 WBC (3.8-10.6) k/uL RBC (3.80-5.40) m/uL Hgb (11.4-16.0) gm/dL Hct (34.0-46.0) % Neutrophils # (1.3-7.7) k/uL INR (<1.2) APTT 42.0 H (22.0-30.0) sec
--- NOTE | 2023-06-29 14:11 | P.PN ---
Subjective Progress Note Date: 06/29/23 patient is 63-year-old lady with past medical history significant for hypertension, who was a transfer from [facility] after initially presenting there for nausea vomiting and diarrhea. Patient stated that she has been having these symptom for at least 1 week. Patient has been having reduced appetite, having persistent nausea and vomiting. Also complaining of shortness of breath. No complaint of fever or chills. Patient presented to previous facility.,She had workup done and was found to be in acute kidney injury. CT abdominal pelvis done there showed features concerning for pneumonia. Patient was transferred to [facility] Initial lab work done in the ER showed WBC 17.7, hemoglobin 10.2, platelet count 445, sodium 122, potassium 5, BUN 100, creatinine 14.7, phosphorus 9.9, magnesium 2.2 Patient was admitted to medicine service 06/28. Patient seen and examined. Blood work done this morning showed WBC 19.8, hemoglobin 3.3, sodium 122, BUN 106, creatinine 15.14. Patient went into A. fib with RVR, currently on Cardizem drip Discussed with nephrology, and they recommended starting patient on renal replacement therapy 06/29. Patient seen and examined. Undergoing dialysis. REVIEW OF SYSTEMS: CONSTITUTIONAL: No fever, no malaise,. CARDIOVASCULAR: No chest pain, no palpitations, no syncope. PULMONARY: Denies shortness of breath GASTROINTESTINAL: No diarrhea, no nausea, no vomiting, no abdominal pain. NEUROLOGICAL: No headaches, no weakness, PHYSICAL EXAMINATION: GENERAL: The patient is alert and oriented x3, not in any acute distress. Well developed, well nourished. HEENT: Pupils are round and equally reacting to light. EOMI. No scleral icterus. No conjunctival pallor. Normocephalic, atraumatic. No pharyngeal erythema. No thyromegaly. CARDIOVASCULAR: S1 and S2 present. No murmurs, rubs, or gallops. PULMONARY: Diminished breath sounds at the bases bilaterally, no crackles ABDOMEN: Soft, nontender, nondistended, normoactive bowel sounds. No palpable organomegaly. MUSCULOSKELETAL: No joint swelling or deformity. EXTREMITIES: No cyanosis, clubbing, or pedal edema. NEUROLOGICAL: Gross neurological examination did not reveal any focal deficits. SKIN: No rashes. Assessment and plan Acute kidney injury A. fib with RVR Hyperphosphatemia Hyponatremia Bacterial pneumonia Hypertension Monitor vital signs Monitor CBC Monitor CMP Strict I's and O's Daily weights Avoid nephrotoxic agents Continue dialysis per nephrology Continue IV Rocephin and azithromycin Continue heparin drip Continue Lopressor Follow-up on pulmonary recommendations Follow-up on cardiology recommendations Follow-up on nephrology recommendations, continued dialysis per nephrology Labs and medication were reviewed.. Continue same treatment. Continue with symptomatic treatment. Resume home medication. Monitor labs and vitals. DVT and GI prophylaxis. Further recommendations as per clinical course of the p atient Dictation was produced using [employer] dictation software. please excuse any grammatical, word or spelling errors. Objective - Vital Signs Vital signs: Vital Signs Temp 97.6 F 06/29/23 12:34 Pulse 75 06/29/23 12:34 Resp 20 06/29/23 12:34 BP 170/75 06/29/23 12:34 Pulse Ox 99 06/29/23 11:22 FiO2 Intake & Output 06/28/23 06/29/23 06/29/23 18:59 06:59 18:59 Intake Total 164.167 598 901.788 Output Total 2200 1650 Balance 164.167 -1602 -748.212 Weight 124.5 kg Intake: IV 50 Intake, IV Titration 114.167 198 165.788 Amount Diltiazem 125 mg In 114.167 125 Sodium Chloride 0.9% 100 ml @ 10 MG/HR 10 mls/hr IV .[id number] NISHANT Rx#: [id number] Heparin Sod,Pork in 0.45% 73 165.788 NaCl 25,000 unit In 0.45 % NaCl 1 250ml.bag @ 7. 874 UNITS/KG/HR 10 mls/hr IV .Q24H NISHANT Rx#: [id number] Oral 236 Hemodialysis 400 500 Output: Urine 200 150 Hemodialysis 2000 1500 Other: Voiding Method Toilet Toilet Toilet # Voids 0 3 # Bowel Movements 2 1 - Labs CBC & Chem 7: 06/29/23 09:32 06/28/23 08:40 Labs: Abnormal Lab Results - Last 24 Hours (Table) 06/28/23 06/29/23 06/29/23 Range/Units 23:05 09:32 09:32 WBC 18.0 H (3.8-10.6) k/uL RBC 3.05 L (3.80-5.40) m/uL Hgb 9.1 L (11.4-16.0) gm/dL Hct 27.1 L (34.0-46.0) % Neutrophils # 16.0 H (1.3-7.7) k/uL APTT 33.6 H 42.0 H (22.0-30.0) sec
[2023-06-29 14:36] LABS: African American GFR (CKD) 7 (>60 ml/min/1.73 sqM); Anion Gap 8 mmol/L; Blood Urea Nitrogen 37 mg/dL (7-17); Calcium 8.3 mg/dL (8.4-10.2); Carbon Dioxide 31 mmol/L (22-30); Chloride 92 mmol/L (98-107); Glucose 89 mg/dL (74-99); Non-African American GFR(CKD) 6 (>60 ml/min/1.73 sqM); Potassium 3.7 mmol/L (3.5-5.1); Sodium 131 mmol/L (137-145)
[2023-06-29] MEDS: CALCIUM ACETATE 667 MG TAB PO SCH (16:39)
[2023-06-29] MEDS: MELATONIN 5 MG TABLET PO PRN (22:14)
[2023-06-30] MEDS: HEPARIN SOD,PORK IN 0.45% NACL 25,000 UNIT in 0.45% NACL 1 250ML.BAG IV SCH ×2 (02:32→20:08)
[2023-06-30] MEDS: DILTIAZEM 125 MG in SODIUM CHLORIDE 0.9% 100 ML IV SCH ×2 (06:38→20:09)
[2023-06-30] MEDS: CALCIUM ACETATE 667 MG TAB PO SCH ×3 (06:41→16:57)
[2023-06-30] MEDS: METOPROLOL TARTRATE 50 MG TAB PO SCH ×3 (06:41→20:15)
[2023-06-30] MEDS: IPRATROPIUM-ALBUTEROL 3 ML NEB INHALATION SCH ×4 (07:39→20:55)
--- NOTE | 2023-06-30 08:56 | P.PN ---
Subjective Progress Note Date: 06/28/23 Principal diagnosis: Pneumonia Patient is a 63-year-old female with multiple comorbidities transferred to this facility for acute renal failure patient also have a elevat ed white count right midlung opacity and pulmonary symptoms concerning for possible pneumonia. On today's evaluation that is 06/28/2023 patient has been afebrile patient is breathing comfortably on 4 L nasal cannula oxygen patient denies having any chest pain patient continued to have a cough but unable to bring up any sputum no nausea no vomiting or diarrhea. Patient did have a white count of 19.8 creatinine is 15.14 COVID testing was negative urine for Legionella antigen negative Objective - Vital Signs Vital signs: Vital Signs Temp 97.5 F L 06/28/23 12:00 Pulse 116 H 06/28/23 12:00 Resp 20 06/28/23 12:00 BP 133/82 06/28/23 12:00 Pulse Ox 95 06/28/23 12:00 FiO2 Intake & Output 06/27/23 06/28/23 06/28/23 18:59 06:59 18:59 Intake Total 200 Output Total 30 Balance 200 -30 Weight 127 kg Intake: Oral 200 Output: Urine 30 Other: Voiding Method Toilet Toilet Toilet # Voids 2 1 # Bowel Movements 1 2 - Exam GENERAL DESCRIPTION: Middle-aged female lying in bed in no distress RESPIRATORY SYSTEM: Unlabored breathing , decreased breath sounds at bases HEART: S1 S2 regular rate and rhythm ABDOMEN: Soft , no tenderness EXTREMITIES: No edema feet - Labs CBC & Chem 7: 06/29/23 09:32 06/29/23 11:45 Labs: Abnormal Lab Results - Last 24 Hours (Table) 06/27/23 06/27/23 06/28/23 Range/Units 08:44 15:11 00:44 WBC (3.8-10.6) k/uL RBC (3.80-5.40) m/uL Hgb (11.4-16.0) gm/dL Hct (34.0-46.0) % Sodium 123 L (137-145) mmol/L Chloride 86 L (98-107) mmol/L Carbon Dioxide 19 L (22-30) mmol/L BUN 101 H* (7-17) mg/dL Creatinine 14.89 H* (0.52-1.04) mg/dL Glucose (74-99) mg/dL Alkaline Phosphatase 144 H (38-126) U/L Total Protein (6.3-8.2) g/dL Albumin 3.2 L (3.5-5.0) g/dL Procalcitonin 0.74 H (0.02-0.09) ng/mL Urine Appearance Cloudy H (Clear) Urine Protein 3+ H (Negative) Urine Glucose (UA) Trace H (Negative) Urine Blood Large H (Negative) Ur Leukocyte Esterase Small H (Negative) Urine RBC >182 H (0-5) /hpf Urine WBC 11 H (0-5) /hpf Ur Squamous Epith Cells 20 H (0-4) /hpf Urine Bacteria Few H (None) /hpf 06/28/23 06/28/23 Range/Units 08:40 08:40 WBC 19.8 H (3.8-10.6) k/uL RBC 3.12 L (3.80-5.40) m/uL Hgb 9.3 L (11.4-16.0) gm/dL Hct 27.6 L (34.0-46.0) % Sodium 122 L (137-145) mmol/L Chloride 84 L (98-107) mmol/L Carbon Dioxide 20 L (22-30) mmol/L BUN 106 H* (7-17) mg/dL Creatinine 15.14 H* (0.52-1.04) mg/dL Glucose 129 H (74-99) mg/dL Alkaline Phosphatase 128 H (38-126) U/L Total Protein 6.0 L (6.3-8.2) g/dL Albumin 3.0 L (3.5-5.0) g/dL Procalcitonin (0.02-0.09) ng/mL Urine Appearance (Clear) Urine Protein (Negative) Urine Glucose (UA) (Negative) Urine Blood (Negative) Ur Leukocyte Esterase (Negative) Urine RBC (0-5) /hpf Urine WBC (0-5) /hpf Ur Squamous Epith Cells (0-4) /hpf Urine Bacteria (None) /hpf Assessment and Plan (1) Pneumonia Current Visit: Yes Status: Acute Code(s): J18.9 - PNEUMONIA, UNSPECIFIED ORGANISM SNOMED Code(s): 844652529 Plan: 1patient with a right midlung pneumonia in this patient with predominantly GI symptoms, in addition to the respiratory symptoms with concern for possible Legionella. 2Urine for Legionella antigen came back negative patient was unable to provide any sputum patient did have procalcitonin 0.74. 2-Patient to continue with the Rocephin and Zithromax and monitor clinical course closely Dictation was produced using [employer] dictation software. please excuse any grammatical, word or spelling errors. Time with Patient: Less than 30
--- NOTE | 2023-06-30 08:59 | P.PN ---
Subjective Progress Note Date: 06/29/23 Principal diagnosis: Pneumonia Patient is a 63-year-old female with multiple comorbidities transferred to this facility for acute renal failure patient also have a elevat ed white count right midlung opacity and pulmonary symptoms concerning for possible pneumonia. On today's evaluation that is 06/29/2023 the patient denies having any fever or any chills, the patient is breathing slightly comfortably currently on 4 L nasal cannula oxygen patient denies having any chest pain continue to have a cough not bringing up any sputum no nausea no vomiting no abdominal pain or diarrhea. Patient white count is 18,000 with a left shift creatinine 6.33 no sputum was collected Objective - Vital Signs Vital signs: Vital Signs Temp 97.6 F 06/29/23 12:34 Pulse 75 06/29/23 12:34 Resp 20 06/29/23 12:34 BP 170/75 06/29/23 12:34 Pulse Ox 99 06/29/23 11:22 FiO2 Intake & Output 06/28/23 06/29/23 06/29/23 18:59 06:59 18:59 Intake Total 164.167 598 783.788 Output Total 2200 1550 Balance 164.167 -1602 -766.212 Weight 124.5 kg Intake: IV 50 Intake, IV Titration 114.167 198 165.788 Amount Diltiazem 125 mg In 114.167 125 Sodium Chloride 0.9% 100 ml @ 10 MG/HR 10 mls/hr IV .[id number] NISHANT Rx#: [id number] Heparin Sod,Pork in 0.45% 73 165.788 NaCl 25,000 unit In 0.45 % NaCl 1 250ml.bag @ 7. 874 UNITS/KG/HR 10 mls/hr IV .Q24H NISHANT Rx#: [id number] Oral 118 Hemodialysis 400 500 Output: Urine 200 50 Hemodialysis 2000 1500 Other: Voiding Method Toilet Toilet Toilet # Voids 0 3 # Bowel Movements 2 1 - Exam GENERAL DESCRIPTION: Middle-aged female lying in bed in no distress RESPIRATORY SYSTEM: Unlabored breathing , decreased breath sounds at bases HEART: S1 S2 regular rate and rhythm ABDOMEN: Soft , no tenderness EXTREMITIES: No edema feet - Labs CBC & Chem 7: 06/29/23 09:32 06/29/23 11:45 Labs: Abnormal Lab Results - Last 24 Hours (Table) 06/28/23 06/29/23 06/29/23 Range/Units 23:05 09:32 09:32 WBC 18.0 H (3.8-10.6) k/uL RBC 3.05 L (3.80-5.40) m/uL Hgb 9.1 L (11.4-16.0) gm/dL Hct 27.1 L (34.0-46.0) % Neutrophils # 16.0 H (1.3-7.7) k/uL APTT 33.6 H 42.0 H (22.0-30.0) sec Assessment and Plan (1) Pneumonia Current Visit: Yes Status: Acute Code(s): J18.9 - PNEUMONIA, UNSPECIFIED ORGANISM SNOMED Code(s): 095830742 Plan: 1patient with a right midlung pneumonia in this patient with predominantly GI symptoms, in addition to the respiratory symptoms with concern for possible Legionella. 2Urine for Legionella antigen came back negative patient was unable to provide any sputum patient did have procalcitonin 0.74. 2-Patient has shown some clinical improvement however the white count is still elevated we will keep the patient on Rocephin and repeat a chest x-ray tomorrow and try to obtain a sputum Dictation was produced using [employer] dictation software. please excuse any grammatical, word or spelling errors. Time with Patient: Less than 30
[2023-06-30] MEDS ORDERED: APIXABAN 2.5 MG TABLET PO SCH (10:00)
[2023-06-30 10:02] LABS: HGB 8.8 gm/dL (11.4-16.0); MCH 29.6 pg (25.0-35.0); MCHC 32.7 g/dL (31.0-37.0); MCV 90.7 fL (80.0-100.0); Mean Platelet Volume 7.2; Platelet Count 347 k/uL (150-450); RBC 2.98 m/uL (3.80-5.40); RDW 14.2 % (11.5-15.5); WBC 16.1 k/uL (3.8-10.6)
[2023-06-30 10:05] LABS: ALT 22 U/L (4-34); AST 23 U/L (14-36); African American GFR (CKD) 5 (>60 ml/min/1.73 sqM); Alkaline Phosphatase 168 U/L (38-126); Anion Gap 15 mmol/L; Blood Urea Nitrogen 51 mg/dL (7-17); Calcium 8.2 mg/dL (8.4-10.2); Carbon Dioxide 23 mmol/L (22-30); Chloride 89 mmol/L (98-107); Glucose 92 mg/dL (74-99); Non-African American GFR(CKD) 4 (>60 ml/min/1.73 sqM); Potassium 4.2 mmol/L (3.5-5.1); Sodium 127 mmol/L (137-145); Total Bilirubin 0.7 mg/dL (0.2-1.3); Total Protein 6.2 g/dL (6.3-8.2)
[2023-06-30 11:19] LABS: Glucose,Whole Blood 101 mg/dL (70-110)
--- NOTE | 2023-06-30 11:57 | P.PN ---
Subjective Progress Note Date: 06/30/23 I am seeing this patient in new consultation today 06/27/2023 after she was transferred from [facility] yesterday evening reportedly for pneumonia among other medical concerns. Patient is a 63-year-old white female past medical history significant for hypertension, hyperlipidemia, and obesity. De nies any significant pulmonary disease or being a tobacco smoker. Patient reportedly started to experience intractable nausea and vomiting, diarrhea, reduced appetite, and shortness of breath approximately one week ago. Patient did have a workup at [facility] which included a nonenhanced abdominal and pelvis CT, which was reportedly concerning for a right middle lobe infiltrate/pneumonia. No acute intra-abdominal abnormalities were reported. Patient denies any abdominal pain, constipation, bloody stools, or hematemesis. At the outside facility, the patient was also found to have acute kidney injury and multiple electrolyte abnormalities. She was reportedly taking ibuprofen for several days. BMP on arrival to our facility shows a sodium 122, potassium 5, chloride 83, serum bicarb 19, BUN 100, creatinine 14.72, glucose 72, phosphorus 9.9. No plans for hemodialysis at this time. Urinalysis at outside facility was not particularly concerning for UTI. Troponins were less than 0.012. CBC on arrival to our facility shows leukocytosis with a WBC count of 17.7, hemoglobin 10.2, hematocrit 29.4, chloride 445. The patient was started on a combination of azithromycin and Rocephin. Patient is currently afebrile. Blood pressure is normotensive. She was reportedly fluid resuscitated with a total of 2 L normal saline bolus, and currently has normal saline infusing at 130 ML's per hour. Patient is currently sitting up in bed, on 4 L/m nasal cannula, in no acute distress. She denies any further vomiting today, and is able to keep down clear liquids. Vital signs are stable at this time. The patient is seen today 06/28/2023 in follow-up on the selective care unit. She is currently sitting up in a chair. Awake and alert in no acute distress. She is maintaining O2 saturations in the 90s on 4 L/m per nasal cannula. She remains on a Cardizem drip at 10 mg per hour. Normal saline at 125 mg liters per hour. White count 19.8. Hemoglobin 9.3. Platelets 356. Sodium 122. Potassium 4.8. Bicarb 20. BUN 906. Creatinine 15.1. Glucose 129. Urinalysis cloudy with large amount of blood and high WBCs and bacteria. She is continued on antibiotics in the form of ceftriaxone and azithromycin. The patient is seen today 06/29/2023 in follow-up on the selective care unit. She is currently resting comfortably in bed. Awake and alert in no acute distress. Currently receiving hemodialysis. She had 1-1/2 L removed yesterday. The plan is for 1-1/2 L again today. She remains on a heparin drip. She is on a Cardizem drip at 5 mg per hour. She is receiving D5W with 3 A of sodium bicarb at 60 ML's per hour. She is maintaining O2 saturations in the low 90s on 4 L/m per nasal cannula. White count 18.0. Hemoglobin 9.1. INR 1.1. She is continued on DuoNeb inhalations. Antibiotics in the form of ceftriaxone. ProCalcitonin 0.74. Chest x-ray reveals similar right-sided airspace opacity. Echocardiogram revealed preserved left ventricular systolic function with no significant valvular heart disease. The patient is seen today 06/30/2023 in follow-up on the selective care unit. She is sitting up in bed. Awake and alert in no acute distress. She is maintaining O2 saturations in the 90s on 4 L/m per nasal cannula. She has a dry nonproductive cough. She is on a Cardizem drip at 10 mg per hour. Heparin drip per weight base protocol. Normal saline KVO. She remains on ceftriaxone. Continued on DuoNeb inhalations. Anticoagulated with Eliquis. White count 16.8.8. Platelets 347. Sodium 127. Potassium 4.2. Bicarb 23. BUN 51. Creatinine 9.14. Glucose 101. The plan is for hemodialysis again today. Objective - Vital Signs Vital signs: Vital Signs Temp 98.1 F 06/30/23 08:16 Pulse 76 06/30/23 11:40 Resp 20 06/30/23 11:40 BP 161/70 06/30/23 11:40 Pulse Ox 97 06/30/23 11:40 FiO2 Intake & Output 06/29/23 06/30/23 06/30/23 18:59 06:59 18:59 Intake Total 901.788 357.143 112.778 Output Total 1800 50 Balance -898.212 307.143 112.778 Intake: Intake, IV Titration 165.788 357.143 112.778 Amount Diltiazem 125 mg In 125 Sodium Chloride 0.9% 100 ml @ 10 MG/HR 10 mls/hr IV .[id number] [facility] Rx#: [id number] Heparin Sod,Pork in 0.45% 165.788 232.143 112.778 NaCl 25,000 unit In 0.45 % NaCl 1 250ml.bag @ 7. 874 UNITS/KG/HR 10 mls/hr IV .Q24H [facility] Rx#: [id number] Oral 236 Hemodialysis 500 Output: Urine 300 50 Hemodialysis 1500 Other: Voiding Method Toilet Toilet Toilet # Voids 2 # Bowel Movements 1 - Exam GENERAL EXAM: Alert, pleasant 63-year-old obese female, resting comfortably in bed, on 4 L nasal cannula, comfortable in no apparent distress. HEAD: Normocephalic and atraumatic EYES: Normal reaction of pupils, equal size. NOSE: Clear with pink turbinates. THROAT: No erythema or exudates. NECK: No masses, no JVD. CHEST: No chest wall deformity. LUNGS: Equal air entry with inspiratory right posterior crackles. No wheeze, rhonchi or dullness. CVS: S1 and S2 normal with no audible murmur, regular rhythm. No extra heart sounds ABDOMEN: Obese abdomen, no hepatosplenomegaly, active bowel sounds, no guarding or rigidity. SPINE: No scoliosis or deformity SKIN: No rashes CENTRAL NERVOUS SYSTEM: No focal deficits, tone is normal in all 4 extremities. EXTREMITIES: There is 1-2+ peripheral edema, clubbing, or cyanosis. Peripheral pulses are intact. - Labs CBC & Chem 7: 06/30/23 08:39 06/30/23 08:39 Labs: Abnormal Lab Results - Last 24 Hours (Table) 06/29/23 06/29/23 06/30/23 Range/Units 11:45 15:28 08:39 WBC 16.1 H (3.8-10.6) k/uL RBC 2.98 L (3.80-5.40) m/uL Hgb 8.8 L (11.4-16.0) gm/dL Hct 27.0 L (34.0-46.0) % APTT 44.5 H (22.0-30.0) sec Sodium 131 L (137-145) mmol/L Chloride 92 L (98-107) mmol/L Carbon Dioxide 31 H (22-30) mmol/L BUN 37 H (7-17) mg/dL Creatinine 6.33 H (0.52-1.04) mg/dL Calcium 8.3 L (8.4-10.2) mg/dL Alkaline Phosphatase (38-126) U/L Total Protein (6.3-8.2) g/dL Albumin (3.5-5.0) g/dL 06/30/23 06/30/23 Range/Units 08:39 08:39 WBC (3.8-10.6) k/uL RBC (3.80-5.40) m/uL Hgb (11.4-16.0) gm/dL Hct (34.0-46.0) % APTT 40.2 H (22.0-30.0) sec Sodium 127 L (137-145) mmol/L Chloride 89 L (98-107) mmol/L Carbon Dioxide (22-30) mmol/L BUN 51 H (7-17) mg/dL Creatinine 9.14 H* (0.52-1.04) mg/dL Calcium 8.2 L (8.4-10.2) mg/dL Alkaline Phosphatase 168 H (38-126) U/L Total Protein 6.2 L (6.3-8.2) g/dL Albumin 3.0 L (3.5-5.0) g/dL Assessment and Plan Assessment: Acute hypoxemic respiratory failure, on 4 L/m nasal cannula, possibly secondary to right middle lobe infiltrate/pneumonia as reported from outside facility, currently being treated on empiric antibiotics. Follow-up chest x-ray reveals right midlung patchy airspace opacity. Pro-calcitonin 0.74. Remains on ceftriaxone and completed azithromycin. Suspect acute gastroenteritis and dehydration Leukocytosis secondary to above Acute kidney injury, creatinine 15.14 here initiated on hemodialysis 06/28/2023 Urinary tract infection, cultures pending Acute anion gap metabolic acidosis Hyponatremia, related to hypovolemia Hyperkalemia, improved, received lokelma Hyperphosphatemia New-onset atrial fibrillation with RVR, initiated on Cardizem drip Essential hypertension Hyperlipidemia Morbid obesity, with a BMI of 37 kg/m he Plan: The patient was seen and evaluated Medications and labs reviewed Continue antibiotics, bronchodilators Receiving renal replacement therapy Remains on a Cardizem drip Remains on a heparin drip Titrate the FiO2 as tolerated Follow-up chest x-ray in a.m. We will continue to follow I have personally seen and examined the patient, performed the documentation and the assessment and plan as written. Number of minutes spent on the visit: 10.
--- NOTE | 2023-06-30 12:47 | P.PN ---
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 She has a past medical history of hypertension, hyperlipidemia, obesity, history of tobacco use. We have been asked to evaluate the patient for new onset atrial fibrillation. Patient gives history that she had vomiting and diarrhea for more than a week was unable to eat or drink anything and initially presented to a local hospital. Patient was found to be in acute kidney injury was transferred to [facility] for further evaluation and treatment. Patient also was started on IV antibiotics for pneumonia. She is status post 2 L of IV fluid and continues on IV fluids 130 mL per hour. Around 4:00 this morning, patient went into atrial fibrillation in the 170s and was given a Cardizem bolus followed by a drip at 10 mg per hour and her Lopressor 50 mg twice daily was given early at 4 AM. At the time of this evaluation, patient's heart rate is running in the 110s to 120s. She states her vomiting has improved but she continues to have diarrhea. EKG sinus rhythm, #2 atrial fibrillation with ventricular rate of 150 Chest x-ray: Right midlung patchy airspace opacities concerning for pneumonia Woman WBC 19.8, hemoglobin 9.3, platelet count 356. INR 1.2. Sodium 122, potassium initially 6.3 now 4.8. CO2 20, BUN 106, creatinine 15.1. Blood sugar 129. Phosphorus 10.6. Alkaline phosphatase 128. Influenza A, influenza B, Covid 19 not detected Home cardiac medications: Metoprolol tartrate 50 mg twice daily 06/29 Patient started on dialysis yesterday with removal of 1.5 L with plan for the same today. She has been continued on IV Lasix. She remains on Cardizem drip as well as started on heparin drip following catheter insertion. Patient has converted to sinus rhythm. Echocardiogram reveals normal LV function, mild mitral and aortic regurgitation, mild pulmonary hypertension. Repeat chest x- ray reveals similar right-sided airspace opacities concerning for pneumonia versus edema. Blood pressures have been elevated 170/95, heart rate in the 70s and 80s. Pulse ox is 99% on 5 L, afebrile. 06/30 Patient has been in and out of atrial fibrillation over the past 24 hours. Yesterday afternoon, patient went back into A. fib with RVR and Cardizem drip was continued. Patient is on heparin drip while anticoagulation is decided. Patient has started hemodialysis on this admission and is on her third day. Blood pressure is 115/83, heart rate is in the 70s and 80s. Pulse ox 97% on room air. Physical examination: Gen: This is a morbidly obese 63-year-old female. She is resting in a bed and appears to be in no acute respiratory distress. VS: reviewed HEENT: Head is atraumatic, normocephalic. Pupils equal, round. Sclerae is anicteric. NECK: Supple. No JVD. LUNGS: Clear to auscultation. No wheezes or rhonchi. No intercostal retract ions. HEART: Irregular rate and rhythm. No murmur. ABDOMEN: Soft No tenderness. EXTREMITIES: 2+ pedal edema. No calf tenderness. Assessment: A. fib with RVR, paroxysmal atrial fibrillation Acute hypoxic respiratory failure secondary to possible pneumonia Gastroenteritis Acute kidney injury, started on HD 06/28. Metabolic acidosis Hyponatremia Hyperkalemia Hyperphosphatemia Hypertension Hyperlipidemia Urinary tract infection Leukocytosis Plan: Discontinue Cardizem drip Discontinue heparin drip and start patient on eliquis 2.5 mg twice daily Continue Lopressor 25 mg 3 times daily Further recommendations to follow based upon clinical course Nurse practitioner note has been reviewed, I agree with documented findings and plan of care. Patient was seen and examined. Objective - Vital Signs Vital signs: Vital Signs Temp 98.1 F 06/30/23 08:16 Pulse 95 06/30/23 12:18 Resp 20 06/30/23 11:40 BP 161/70 06/30/23 11:40 Pulse Ox 97 06/30/23 11:40 FiO2 Intake & Output 06/29/23 06/30/23 06/30/23 18:59 06:59 18:59 Intake Total 901.788 357.143 112.778 Output Total 1800 50 Balance -898.212 307.143 112.778 Intake: Intake, IV Titration 165.788 357.143 112.778 Amount Diltiazem 125 mg In 125 Sodium Chloride 0.9% 100 ml @ 10 MG/HR 10 mls/hr IV .[id number] [facility] Rx#: [id number] Heparin Sod,Pork in 0.45% 165.788 232.143 112.778 NaCl 25,000 unit In 0.45 % NaCl 1 250ml.bag @ 7. 874 UNITS/KG/HR 10 mls/hr IV .Q24H [facility] Rx#: [id number] Oral 236 Hemodialysis 500 Output: Urine 300 50 Hemodialysis 1500 Other: Voiding Method Toilet Toilet Toilet # Voids 2 # Bowel Movements 1 - Labs CBC & Chem 7: 06/30/23 08:39 06/30/23 08:39 Labs: Abnormal Lab Results - Last 24 Hours (Table) 06/29/23 06/29/23 06/30/23 Range/Units 11:45 15:28 08:39 WBC 16.1 H (3.8-10.6) k/uL RBC 2.98 L (3.80-5.40) m/uL Hgb 8.8 L (11.4-16.0) gm/dL Hct 27.0 L (34.0-46.0) % APTT 44.5 H (22.0-30.0) sec Sodium 131 L (137-145) mmol/L Chloride 92 L (98-107) mmol/L Carbon Dioxide 31 H (22-30) mmol/L BUN 37 H (7-17) mg/dL Creatinine 6.33 H (0.52-1.04) mg/dL Calcium 8.3 L (8.4-10.2) mg/dL Alkaline Phosphatase (38-126) U/L Total Protein (6.3-8.2) g/dL Albumin (3.5-5.0) g/dL 06/30/23 06/30/23 Range/Units 08:39 08:39 WBC (3.8-10.6) k/uL RBC (3.80-5.40) m/uL Hgb (11.4-16.0) gm/dL Hct (34.0-46.0) % APTT 40.2 H (22.0-30.0) sec Sodium 127 L (137-145) mmol/L Chloride 89 L (98-107) mmol/L Carbon Dioxide (22-30) mmol/L BUN 51 H (7-17) mg/dL Creatinine 9.14 H* (0.52-1.04) mg/dL Calcium 8.2 L (8.4-10.2) mg/dL Alkaline Phosphatase 168 H (38-126) U/L Total Protein 6.2 L (6.3-8.2) g/dL Albumin 3.0 L (3.5-5.0) g/dL
[2023-06-30] MEDS ORDERED: METOPROLOL TARTRATE 50 MG TAB PO STA (13:07)
--- NOTE | 2023-06-30 13:25 | P.PN ---
Subjective Progress Note Date: 06/30/23 patient is 63-year-old lady with past medical history significant for hypertension, who was a transfer from [facility] after initially presenting there for nausea vomiting and diarrhea. Patient stated that she has been having these symptom for at least 1 week. Patient has been having reduced appetite, having persistent nausea and vomiting. Also complaining of shortness of breath. No complaint of fever or chills. Patient presented to previous facility.,She had workup done and was found to be in acute kidney injury. CT abdominal pelvis done there showed features concerning for pneumonia. Patient was transferred to [facility] Initial lab work done in the ER showed WBC 17.7, hemoglobin 10.2, platelet count 445, sodium 122, potassium 5, BUN 100, creatinine 14.7, phosphorus 9.9, magnesium 2.2 Patient was admitted to medicine service 06/28. Patient seen and examined. Blood work done this morning showed WBC 19.8, hemoglobin 3.3, sodium 122, BUN 106, creatinine 15.14. Patient went into A. fib with RVR, currently on Cardizem drip Discussed with nephrology, and they recommended starting patient on renal replacement therapy 06/29. Patient seen and examined. Undergoing dialysis. 06/30. Patient seen and examined. Currently on 4 L of oxygen. Gets short of breath on exertion. Going to do dialysis today REVIEW OF SYSTEMS: CONSTITUTIONAL: No fever, no malaise,. CARDIOVASCULAR: No chest pain, no palpitations, no syncope. PULMONARY: Denies shortness of breath GASTROINTESTINAL: No diarrhea, no nausea, no vomiting, no abdominal pain. NEUROLOGICAL: No headaches, no weakness, PHYSICAL EXAMINATION: GENERAL: The patient is alert and oriented x3, not in any acute distress. Well developed, well nourished. HEENT: Pupils are round and equally reacting to light. EOMI. No scleral icterus. No conjunctival pallor. Normocephalic, atraumatic. No pharyngeal erythema. No thyromegaly. CARDIOVASCULAR: S1 and S2 present. No murmurs, rubs, or gallops. PULMONARY: Diminished breath sounds at the bases bilaterally, no crackles ABDOMEN: Soft, nontender, nondistended, normoactive bowel sounds. No palpable organomegaly. MUSCULOSKELETAL: No joint swelling or deformity. EXTREMITIES: No cyanosis, clubbing, or pedal edema. NEUROLOGICAL: Gross neurological examination did not reveal any focal deficits. SKIN: No rashes. Assessment and plan Acute kidney injury A. fib with RVR Hyperphosphatemia Hyponatremia Bacterial pneumonia Hypertension Monitor vital signs Monitor CBC Monitor CMP Strict I's and O's Daily weights Avoid nephrotoxic agents Continue dialysis per nephrology Continue IV Rocephin Heparin discontinued, started on Eliquis Continue Lopressor Follow-up on cardiology recommendations Follow-up on nephrology recommendations, continued dialysis per nephrology Labs and medication were reviewed.. Continue same treatment. Continue with symptomatic treatment. Resume home medication. Monitor labs and vitals. DVT and GI prophylaxis. Further recommendations as per clinical course of the patient Dictation was produced using [employer] dictation software. please excuse any grammatical, word or spelling errors. Objective - Vital Signs Vital signs: Vital Signs Temp 98.1 F 06/30/23 08:16 Pulse 95 06/30/23 12:18 Resp 20 06/30/23 11:40 BP 161/70 06/30/23 11:40 Pulse Ox 97 06/30/23 11:40 FiO2 Intake & Output 06/29/23 06/30/23 06/30/23 18:59 06:59 18:59 Intake Total 901.788 357.143 230.778 Output Total 1800 50 Balance -898.212 307.143 230.778 Intake: Intake, IV Titration 165.788 357.143 112.778 Amount Diltiazem 125 mg In 125 Sodium Chloride 0.9% 100 ml @ 10 MG/HR 10 mls/hr IV .[id number] [facility] Rx#: [id number] Heparin Sod,Pork in 0.45% 165.788 232.143 112.778 NaCl 25,000 unit In 0.45 % NaCl 1 250ml.bag @ 7. 874 UNITS/KG/HR 10 mls/hr IV .Q24H [facility] Rx#: [id number] Oral 236 118 Hemodialysis 500 Output: Urine 300 50 Hemodialysis 1500 Other: Voiding Method Toilet Toilet Toilet # Voids 2 # Bowel Movements 1 - Labs CBC & Chem 7: 06/30/23 08:39 06/30/23 08:39 Labs: Abnormal Lab Results - Last 24 Hours (Table) 08/16/23 08/17/23 08/17/23 Range/Units 18:16 11:45 15:28 WBC (3.8-10.6) k/uL RBC (3.80-5.40) m/uL Hgb (11.4-16.0) gm/dL Hct (34.0-46.0) % APTT 44.5 H (22.0-30.0) sec Sodium 131 L (137-145) mmol/L Chloride 92 L (98-107) mmol/L Carbon Dioxide 31 H (22-30) mmol/L BUN 37 H (7-17) mg/dL Creatinine 6.33 H (0.52-1.04) mg/dL Calcium 8.3 L (8.4-10.2) mg/dL Alkaline Phosphatase (38-126) U/L Total Protein (6.3-8.2) g/dL Albumin (3.5-5.0) g/dL Myeloperoxidase Ab 42.0 H (<3.5) U/mL 06/30/23 06/30/23 06/30/23 Range/Units 08:39 08:39 08:39 WBC 16.1 H (3.8-10.6) k/uL RBC 2.98 L (3.80-5.40) m/uL Hgb 8.8 L (11.4-16.0) gm/dL Hct 27.0 L (34.0-46.0) % APTT 40.2 H (22.0-30.0) sec Sodium 127 L (137-145) mmol/L Chloride 89 L (98-107) mmol/L Carbon Dioxide (22-30) mmol/L BUN 51 H (7-17) mg/dL Creatinine 9.14 H* (0.52-1.04) mg/dL Calcium 8.2 L (8.4-10.2) mg/dL Alkaline Phosphatase 168 H (38-126) U/L Total Protein 6.2 L (6.3-8.2) g/dL Albumin 3.0 L (3.5-5.0) g/dL Myeloperoxidase Ab (<3.5) U/mL
--- NOTE | 2023-06-30 16:05 | P.PN ---
Subjective Progress Note Date: 06/30/23 Principal diagnosis: Pneumonia Patient is a 63-year-old female with multiple comorbidities transferred to this facility for acute renal failure patient also have a elevat ed white count right midlung opacity and pulmonary symptoms concerning for possible pneumonia. On today's evaluation that is 06/30/2023, the patient remains to be afebrile, the patient is breathing comfortably on 3 L nasal cannula oxygen and she denies having any chest pain and no worsening cough or sputum production no abdominal pain and no further diarrhea. Patient was encouraged on a 16.1, creatinine 9.14 Objective - Vital Signs Vital signs: Vital Signs Temp 98.1 F 06/30/23 08:16 Pulse 95 06/30/23 12:18 Resp 20 06/30/23 11:40 BP 161/70 06/30/23 11:40 Pulse Ox 97 06/30/23 11:40 FiO2 Intake & Output 06/29/23 06/30/23 06/30/23 18:59 06:59 18:59 Intake Total 901.788 357.143 112.778 Output Total 1800 50 Balance -898.212 307.143 112.778 Intake: Intake, IV Titration 165.788 357.143 112.778 Amount Diltiazem 125 mg In 125 Sodium Chloride 0.9% 100 ml @ 10 MG/HR 10 mls/hr IV .[id number] [facility] Rx#: [id number] Heparin Sod,Pork in 0.45% 165.788 232.143 112.778 NaCl 25,000 unit In 0.45 % NaCl 1 250ml.bag @ 7. 874 UNITS/KG/HR 10 mls/hr IV .Q24H [facility] Rx#: [id number] Oral 236 Hemodialysis 500 Output: Urine 300 50 Hemodialysis 1500 Other: Voiding Method Toilet Toilet Toilet # Voids 2 # Bowel Movements 1 - Exam GENERAL DESCRIPTION: Middle-aged female lying in bed in no distress RESPIRATORY SYSTEM: Unlabored breathing , decreased breath sounds at bases HEART: S1 S2 regular rate and rhythm ABDOMEN: Soft , no tenderness EXTREMITIES: No edema feet - Labs CBC & Chem 7: 06/30/23 08:39 06/30/23 08:39 Labs: Abnormal Lab Results - Last 24 Hours (Table) 06/28/23 06/29/23 06/29/23 Range/Units 18:16 11:45 15:28 WBC (3.8-10.6) k/uL RBC (3.80-5.40) m/uL Hgb (11.4-16.0) gm/dL Hct (34.0-46.0) % APTT 44.5 H (22.0-30.0) sec Sodium 131 L (137-145) mmol/L Chloride 92 L (98-107) mmol/L Carbon Dioxide 31 H (22-30) mmol/L BUN 37 H (7-17) mg/dL Creatinine 6.33 H (0.52-1.04) mg/dL Calcium 8.3 L (8.4-10.2) mg/dL Alkaline Phosphatase (38-126) U/L Total Protein (6.3-8.2) g/dL Albumin (3.5-5.0) g/dL Myeloperoxidase Ab 42.0 H (<3.5) U/mL 06/30/23 06/30/23 06/30/23 Range/Units 08:39 08:39 08:39 WBC 16.1 H (3.8-10.6) k/uL RBC 2.98 L (3.80-5.40) m/uL Hgb 8.8 L (11.4-16.0) gm/dL Hct 27.0 L (34.0-46.0) % APTT 40.2 H (22.0-30.0) sec Sodium 127 L (137-145) mmol/L Chloride 89 L (98-107) mmol/L Carbon Dioxide (22-30) mmol/L BUN 51 H (7-17) mg/dL Creatinine 9.14 H* (0.52-1.04) mg/dL Calcium 8.2 L (8.4-10.2) mg/dL Alkaline Phosphatase 168 H (38-126) U/L Total Protein 6.2 L (6.3-8.2) g/dL Albumin 3.0 L (3.5-5.0) g/dL Myeloperoxidase Ab (<3.5) U/mL Assessment and Plan (1) Pneumonia Current Visit: Yes Status: Acute Code(s): J18.9 - PNEUMONIA, UNSPECIFIED ORGANISM SNOMED Code(s): 009427317 Plan: 1patient with a right midlung pneumonia in this patient with predominantly GI symptoms, in addition to the respiratory symptoms with concern for possible Legionella. 2Urine for Legionella antigen came back negative patient was unable to provide any sputum patient did have procalcitonin 0.74. 2-Patient has shown some clinical improvement however the white count is still elevated we will switch antibiotic therapy to Unasyn and see clinical response a nd monitor clinical course closely Dictation was produced using [employer] dictation software. please excuse any grammatical, word or spelling errors. Time with Patient: Less than 30
[2023-06-30] MEDS: predniSONE 20 MG TAB PO SCH (16:57)
[2023-06-30] MEDS: BENZONATATE 100 MG CAP PO SCH ×2 (16:57→20:15)
[2023-06-30] MEDS: AMPICILLIN-SULBACTAM 3 GM in SODIUM CHLORIDE 0.9% 100 ML IVPB SCH (16:58)
[2023-06-30] MEDS ORDERED: HEPARIN SODIUM 1,000 UN/ML (10ML VL) IV PRN (19:22)
[2023-06-30 20:41] LABS: INR 1.1 (<1.2); Partial Thromboplastin Time 33.3 sec (22.0-30.0); Prothrombin Time 11.1 sec (9.0-12.0)
[2023-06-30] MEDS: MELATONIN 5 MG TABLET PO PRN (21:12)
[2023-06-30 22:36] LABS: Anti-Glomerular Basement Memb >680.0 U/mL (<7.0)
--- NOTE | 2023-07-01 00:47 | P.PN ---
Subjective Patient is seen for follow-up for acute kidney injury. Oliguric ATN versus acute GN She continues to feel short of breath. No significant urine output documented. Started on hemodialysis on 06/28/2023. Scheduled for third treatment today. Objective - Vital Signs Vital signs: Vital Signs Temp 97 F L 06/30/23 17:01 Pulse 82 07/01/23 00:00 Resp 18 07/01/23 00:00 BP 156/68 07/01/23 00:00 Pulse Ox 96 07/01/23 00:00 FiO2 Intake & Output 06/30/23 06/30/23 07/01/23 06:59 18:59 06:59 Intake Total 357.143 848.778 Output Total 50 2700 Balance 307.143 -1851.222 Intake: Intake, IV Titration 357.143 112.778 Amount Diltiazem 125 mg In 125 Sodium Chloride 0.9% 100 ml @ 10 MG/HR 10 mls/hr IV .[id number] NISHANT Rx#: [id number] Heparin Sod,Pork in 0.45% 232.143 112.778 NaCl 25,000 unit In 0.45 % NaCl 1 250ml.bag @ 7. 874 UNITS/KG/HR 10 mls/hr IV .Q24H NISHANT Rx#: [id number] Oral 236 Hemodialysis 500 Output: Urine 50 Hemodialysis 2700 Other: Voiding Method Toilet Toilet Toilet # Voids 2 3 - Exam Patient is awake, comfortable, no acute distress, short of breath Examination of the heart S1 and S2 Examination of the lungs bilateral breath sounds are heard Abdomen is soft nontender Examination of lower extremities shows trace edema. PIPELAYING FITTER exam grossly intact - Labs CBC & Chem 7: 06/30/23 08:39 06/30/23 08:39 Labs: Abnormal Lab Results - Last 24 Hours (Table) 06/28/23 06/30/23 06/30/23 Range/Units 18:16 08:39 08:39 WBC 16.1 H (3.8-10.6) k/uL RBC 2.98 L (3.80-5.40) m/uL Hgb 8.8 L (11.4-16.0) gm/dL Hct 27.0 L (34.0-46.0) % APTT (22.0-30.0) sec Sodium 127 L (137-145) mmol/L Chloride 89 L (98-107) mmol/L BUN 51 H (7-17) mg/dL Creatinine 9.14 H* (0.52-1.04) mg/dL Calcium 8.2 L (8.4-10.2) mg/dL Alkaline Phosphatase 168 H (38-126) U/L Total Protein 6.2 L (6.3-8.2) g/dL Albumin 3.0 L (3.5-5.0) g/dL Myeloperoxidase Ab 42.0 H (<3.5) U/mL Glomerular Base Memb Ab >680.0 H (<7.0) U/mL 06/30/23 06/30/23 Range/Units 08:39 19:45 WBC (3.8-10.6) k/uL RBC (3.80-5.40) m/uL Hgb (11.4-16.0) gm/dL Hct (34.0-46.0) % APTT 40.2 H 33.3 H (22.0-30.0) sec Sodium (137-145) mmol/L Chloride (98-107) mmol/L BUN (7-17) mg/dL Creatinine (0.52-1.04) mg/dL Calcium (8.4-10.2) mg/dL Alkaline Phosphatase (38-126) U/L Total Protein (6.3-8.2) g/dL Albumin (3.5-5.0) g/dL Myeloperoxidase Ab (<3.5) U/mL Glomerular Base Memb Ab (<7.0) U/mL Assessment and Plan Assessment: 1. Acute kidney injury, ATN currently oliguric. No evidence of obstruction. UA shows 3+ protein and large blood, WBCs 11. Rule out underlying GN. So far all serologies are negative. Urine output remains low started hemodialysis 06/28/2023 2. Right lung pneumonia maintained on antibiotics 3. Hyperkalemia associated with acute kidney injury 4. Anion-gap metabolic acidosis secondary to advanced renal failure. 5. Anemia rule out iron deficiency 6. Hyperphosphatemia secondary to advanced renal failure 7. Hyponatremia, hypovolemic from acute kidney injury. Expect improvement with hemodialysis. 8. Volume overload Plan: Hemodialysis today and then again in a.m. Add phosphate binders with meals Repeat labs this evening and again in a.m. Increase UF with dialysis Accurate I's and O's
[2023-07-01 02:12] LABS: Basophils % (A) 0 %; Eosinophils % (A) 0 %; HCT 25.1 % (34.0-46.0); HGB 8.4 gm/dL (11.4-16.0); Lymphocytes # (A) 0.5 k/uL (1.0-4.8); Lymphocytes % (A) 5 %; MCH 30.3 pg (25.0-35.0); MCHC 33.4 g/dL (31.0-37.0); MCV 90.8 fL (80.0-100.0); Mean Platelet Volume 6.8; Monocytes # (A) 0.1 k/uL (0-1.0); Monocytes % (A) 1 %; Neutrophils # (A) 9.9 k/uL (1.3-7.7); Neutrophils % (A) 94 %; Platelet Count 322 k/uL (150-450); RBC 2.77 m/uL (3.80-5.40); RDW 14.1 % (11.5-15.5); WBC 10.6 k/uL (3.8-10.6)
[2023-07-01 02:21] LABS: Partial Thromboplastin Time 33.2 sec (22.0-30.0)
[2023-07-01] MEDS: HEPARIN SOD,PORK IN 0.45% NACL 25,000 UNIT in 0.45% NACL 1 250ML.BAG IV SCH (04:20)
[2023-07-01] MEDS: CALCIUM ACETATE 667 MG TAB PO SCH ×3 (05:51→17:13)
--- NOTE | 2023-07-01 07:03 | XR ---
EXAMINATION TYPE: XR chest 1V portable DATE OF EXAM: 07/01/2023 6:22 AM COMPARISON: Chest radiographs from 06/29/2023 TECHNIQUE: XR chest 1V portable Portable AP radiograph of the chest. CLINICAL INDICATION:Female, 63 years old with history of Hypoxemia; FINDINGS: Lungs/Pleura: Blunting of the left costophrenic angle. No pneumothorax. Slightly decreased patchy air space opacities throughout the right lung. Similar left basilar patchy airspace opacities. Heart/mediastinum: Cardiomediastinal silhouette is prominent in size. Musculoskeletal: No acute osseous pathology. Other findings: None Lines/Tubes: Right IJ dual-lumen catheter is in stable position with distal tip at the low SVC. IMPRESSION: Slightly decreased patchy airspace opacities throughout the right lung with similar left basilar patc hy airspace opacities concerning for pneumonia versus edema.
--- NOTE | 2023-07-01 08:02 | P.PN ---
Subjective Progress Note Date: 07/01/23 Principal diagnosis: A. FIB On the patient is a 63-year-old female patient who was admitted to the hospital with generalized weakness and fatigue and she was diagnosed with renal failure requiring dialysis. We consulted to see the patient for atrial fibrillation management which is new to the patient. The echo revealed normal LV systolic function July [id number] The patient was seen and evaluated this morning. She seems to be in sinus mechanism. Currently she is on heparin IV because she is in process of having a biopsy of the kidney this coming Monday. She is on Cardizem IV as well as. She is on beta tameka was metoprolol. I'm going to increase the dose of beta tameka 200 mg by mouth twice a day was metoprolol tartrate and holding to wean the patient from the Cardizem IV. Continue IV anticoagulation until the patient undergo the biopsy this coming Monday The examination is remarkable for stable vital signs with regular rhythm and diminished breathing sounds bilaterally and no lower extremities edema noted Assessment Renal failure requiring dialysis Paroxysmal atrial fibrillation Multiple comorbid conditions Plan Continue heparin IV Consider starting the patient oral anticoagulation after the biopsy Increase the dose of metoprolol Trying to wean the patient from Cardizem IV Objective - Vital Signs Vital signs: Vital Signs Temp 97 F L 06/30/23 17:01 Pulse 74 07/01/23 04:00 Resp 18 07/01/23 04:00 BP 134/77 07/01/23 04:00 Pulse Ox 95 07/01/23 04:00 FiO2 Intake & Output 06/30/23 07/01/23 07/01/23 18:59 06:59 18:59 Intake Total 848.778 81.672 Output Total 2700 Balance -1851.222 81.672 Intake: Intake, IV Titration 112.778 81.672 Amount Heparin Sod,Pork in 0.45% 112.778 NaCl 25,000 unit In 0.45 % NaCl 1 250ml.bag @ 7. 874 UNITS/KG/HR 10 mls/hr IV .Q24H [facility]ISH[facility] Rx#: [id number] Heparin Sod,Pork in 0.45% 81.672 NaCl 25,000 unit In 0.45 % NaCl 1 250ml.bag @ 8 UNITS/KG/HR 9.96 mls/hr IV .Q24H NISHANT Rx#: [id number] Oral 236 Hemodialysis 500 Output: Hemodialysis 2700 Other: Voiding Method Toilet Toilet # Voids 3 1 - Labs CBC & Chem 7: 07/01/23 01:58 06/30/23 08:39 Labs: Abnormal Lab Results - Last 24 Hours (Table) 06/28/23 06/30/23 06/30/23 Range/Units 18:16 08:39 08:39 WBC 16.1 H (3.8-10.6) k/uL RBC 2.98 L (3.80-5.40) m/uL Hgb 8.8 L (11.4-16.0) gm/dL Hct 27.0 L (34.0-46.0) % Neutrophils # (1.3-7.7) k/uL Lymphocytes # (1.0-4.8) k/uL APTT (22.0-30.0) sec Sodium 127 L (137-145) mmol/L Chloride 89 L (98-107) mmol/L BUN 51 H (7-17) mg/dL Creatinine 9.14 H* (0.52-1.04) mg/dL Calcium 8.2 L (8.4-10.2) mg/dL Alkaline Phosphatase 168 H (38-126) U/L Total Protein 6.2 L (6.3-8.2) g/dL Albumin 3.0 L (3.5-5.0) g/dL Myeloperoxidase Ab 42.0 H (<3.5) U/mL Glomerular Base Memb Ab >680.0 H (<7.0) U/mL 06/30/23 06/30/23 07/01/23 Range/Units 08:39 19:45 01:58 WBC (3.8-10.6) k/uL RBC 2.77 L (3.80-5.40) m/uL Hgb 8.4 L (11.4-16.0) gm/dL Hct 25.1 L (34.0-46.0) % Neutrophils # 9.9 H (1.3-7.7) k/uL Lymphocytes # 0.5 L (1.0-4.8) k/uL APTT 40.2 H 33.3 H (22.0-30.0) sec Sodium (137-145) mmol/L Chloride (98-107) mmol/L BUN (7-17) mg/dL Creatinine (0.52-1.04) mg/dL Calcium (8.4-10.2) mg/dL Alkaline Phosphatase (38-126) U/L Total Protein (6.3-8.2) g/dL Albumin (3.5-5.0) g/dL Myeloperoxidase Ab (<3.5) U/mL Glomerular Base Memb Ab (<7.0) U/mL 07/01/23 Range/Units 01:58 WBC (3.8-10.6) k/uL RBC (3.80-5.40) m/uL Hgb (11.4-16.0) gm/dL Hct (34.0-46.0) % Neutrophils # (1.3-7.7) k/uL Lymphocytes # (1.0-4.8) k/uL APTT 33.2 H (22.0-30.0) sec Sodium (137-145) mmol/L Chloride (98-107) mmol/L BUN (7-17) mg/dL Creatinine (0.52-1.04) mg/dL Calcium (8.4-10.2) mg/dL Alkaline Phosphatase (38-126) U/L Total Protein (6.3-8.2) g/dL Albumin (3.5-5.0) g/dL Myeloperoxidase Ab (<3.5) U/mL Glomerular Base Memb Ab (<7.0) U/mL
[2023-07-01] MEDS: BENZONATATE 100 MG CAP PO SCH ×2 (08:18→15:26)
[2023-07-01] MEDS: predniSONE 20 MG TAB PO SCH (08:19)
[2023-07-01] MEDS: IPRATROPIUM-ALBUTEROL 3 ML NEB INHALATION SCH ×3 (08:37→15:44)
[2023-07-01] MEDS ORDERED: METOPROLOL TARTRATE 50 MG TAB PO SCH (09:00)
[2023-07-01] MEDS: DILTIAZEM 125 MG in SODIUM CHLORIDE 0.9% 100 ML IV SCH (09:15)
--- NOTE | 2023-07-01 11:54 | P.PN ---
Subjective Progress Note Date: 07/01/23 Principal diagnosis: Atrial fibrillation. I am seeing this patient in new consultation today 06/27/2023 after she was transferred from [facility] yesterday evening reportedly for pneumonia among other medical concerns. Patient is a 63-year-old white female past medical history significant for hypertension, hyperlipidemia, and obesity. Denies any significant pulmonary disease or being a tobacco smoker. Patient reportedly started to experience intractable nausea and vomiting, diarrhea, reduced appetite, and shortness of breath approximately one week ago. Patient did have a workup at [facility] which included a nonenhanced abdominal and pelvis CT, which was reportedly concerning for a right middle lobe infiltrate/pneumonia. No acute intra-abdominal abnormalities were reported. Patient denies any abdominal pain, constipation, bloody stools, or hematemesis. At the outside facility, the patient was also found to have acute kidney injury and multiple electrolyte abnormalities. She was reportedly taking ibuprofen for several days. BMP on arrival to our facility shows a sodium 122, potassium 5, chloride 83, serum bicarb 19, BUN 100, creatinine 14.72, glucose 72, phosphorus 9.9. No plans for hemodialysis at this time. Urinalysis at outside facility was not particularly concerning for UTI. Troponins were less than 0.012. CBC on arrival to our facility shows leukocytosis with a WBC count of 17.7, hemoglobin 10.2, hematocrit 29.4, chloride 445. The patient was started on a combination of azithromycin and Rocephin. Patient is currently afebrile. Blood pressure is normotensive. She was reportedly fluid resuscitated with a total of 2 L normal saline bolus, and currently has normal saline infusing at 130 ML's per hour. Patient is currently sitting up in bed, on 4 L/m nasal cannula, in no acute distress. She denies any further vomiting today, and is able to keep down clear liquids. Vital signs are stable at this time. The patient is seen today 06/28/2023 in follow-up on the selective care unit. She is currently sitting up in a chair. Awake and alert in no acute distress. She is maintaining O2 saturations in the 90s on 4 L/m per nasal cannula. She remains on a Cardizem drip at 10 mg per hour. Normal saline at 125 mg liters per hour. White count 19.8. Hemoglobin 9.3. Platelets 356. Sodium 122. Potassium 4.8. Bicarb 20. BUN 906. Creatinine 15.1. Glucose 129. Urinalysis cloudy with large amount of blood and high WBCs and bacteria. She is continued on antibiotics in the form of ceftriaxone and azithromycin. The patient is seen today 06/29/2023 in follow-up on the selective care unit. She is currently resting comfortably in bed. Awake and alert in no acute distress. Currently receiving hemodialysis. She had 1-1/2 L removed yesterday. The plan is for 1-1/2 L again today. She remains on a heparin drip. She is on a Cardizem drip at 5 mg per hour. She is receiving D5W with 3 A of sodium bicarb at 60 ML's per hour. She is maintaining O2 saturations in the low 90s on 4 L/m per nasal cannula. White count 18.0. Hemoglobin 9.1. INR 1.1. She is continued on DuoNeb inhalations. Antibiotics in the form of ceftriaxone. ProCalcitonin 0.74. Chest x-ray reveals similar right-sided airspace opacity. Echocardiogram revealed preserved left ventricular systolic function with no significant valvular heart disease. The patient is seen today 06/30/2023 in follow-up on the selective care unit. She is sitting up in bed. Awake and alert in no acute distress. She is maintaining O2 saturations in the 90s on 4 L/m per nasal cannula. She has a dry nonproductive cough. She is on a Cardizem drip at 10 mg per hour. Heparin drip per weight base protocol. Normal saline KVO. She remains on ceftriaxone. Continued on DuoNeb inhalations. Anticoagulated with Eliquis. White count 16.8.8. Platelets 347. Sodium 127. Potassium 4.2. Bicarb 23. BUN 51. Creatinine 9.14. Glucose 101. The plan is for hemodialysis again today. Progress note dated 07/01/2023. The patient is seen today in room 377. He is currently on 2 L of oxygen. This been weaned down very nicely. She is getting hemodialysis today. She also continues on Cardizem at 10 mg an hour, and IV heparin. The patient is adamant about being discharged on Monday. Currently labs include a white count 10.6, hemoglobin 8.4, hematocrit 25.1, and a normal platelet count. The rest of the labs look pretty good. No additional labs from today. Chest x-ray shows improved opacities, bilaterally. Objective - Vital Signs Vital signs: Vital Signs Temp 97.7 F 07/01/23 08:13 Pulse 66 07/01/23 11:12 Resp 20 07/01/23 11:12 BP 166/75 07/01/23 11:12 Pulse Ox 96 07/01/23 11:12 FiO2 Intake & Output 06/30/23 07/01/23 07/01/23 18:59 06:59 18:59 Intake Total 848.778 81.672 365 Output Total 2700 Balance -1851.222 81.672 365 Intake: Intake, IV Titration 112.778 81.672 125 Amount Diltiazem 125 mg In 125 Sodium Chloride 0.9% 100 ml @ 10 MG/HR 10 mls/hr IV .[id number] NISHANT Rx#: [id number] Heparin Sod,Pork in 0.45% 112.778 NaCl 25,000 unit In 0.45 % NaCl 1 250ml.bag @ 7. 874 UNITS/KG/HR 10 mls/hr IV .Q24H NISHANT Rx#: [id number] Heparin Sod,Pork in 0.45% 81.672 NaCl 25,000 unit In 0.45 % NaCl 1 250ml.bag @ 8 UNITS/KG/HR 9.96 mls/hr IV .Q24H NISHANT Rx#: [id number] Oral 236 240 Hemodialysis 500 Output: Hemodialysis 2700 Other: Voiding Method Toilet Toilet Toilet # Voids 3 1 1 - Exam No acute distress, oriented 3. Currently on O2, at 2 L. No respiratory distress. HEENT examination is grossly unremarkable. Neck supple. Full range of motion. No adenopathy thyromegaly or neck vein distention. Cardiovascular examination reveals an irregular rhythm and rate. Heart rate is 122 bpm. S1-S2 normal. No S3 or S4. No discernible murmur noted. Heart sounds are distant. Lungs reveal scattered rhonchi. No wheezes or crackles. Breath sounds are equal bilaterally. Generally speaking, breath sounds are improved. Abdomen soft, without masses or tenderness. Extremities are intact. No cyanosis or clubbing. Trace edema. Skin is without rash or lesion. Neurologic examination is brief but nonfocal. - Labs CBC & Chem 7: 07/01/23 01:58 06/30/23 08:39 Labs: Abnormal Lab Results - Last 24 Hours (Table) 06/28/23 06/30/23 07/01/23 Range/Units 18:16 19:45 01:58 RBC 2.77 L (3.80-5.40) m/uL Hgb 8.4 L (11.4-16.0) gm/dL Hct 25.1 L (34.0-46.0) % Neutrophils # 9.9 H (1.3-7.7) k/uL Lymphocytes # 0.5 L (1.0-4.8) k/uL APTT 33.3 H (22.0-30.0) sec Myeloperoxidase Ab 42.0 H (<3.5) U/mL Glomerular Base Memb Ab >680.0 H (<7.0) U/mL 07/01/23 Range/Units 01:58 RBC (3.80-5.40) m/uL Hgb (11.4-16.0) gm/dL Hct (34.0-46.0) % Neutrophils # (1.3-7.7) k/uL Lymphocytes # (1.0-4.8) k/uL APTT 33.2 H (22.0-30.0) sec Myeloperoxidase Ab (<3.5) U/mL Glomerular Base Memb Ab (<7.0) U/mL Assessment and Plan Assessment: Acute hypoxemic respiratory failure, on 4 L/m nasal cannula, possibly secondary to right middle lobe infiltrate/pneumonia as reported from outside facility, currently being treated on empiric antibiotics. Follow-up chest x-ray reveals right midlung patchy airspace opacity. Pro-calcitonin was 0.74. Now on Unasyn as per ID. Suspect acute gastroenteritis and dehydration. Leukocytosis secondary to above. Acute kidney injury, creatinine 15.14 here initiated on hemodialysis 06/28/2023. Urinary tract infection, cultures pending. Acute anion gap metabolic acidosis. Hyponatremia, related to hypovolemia. Hyperkalemia, improved. Hyperphosphatemia. New-onset atrial fibrillation with RVR, initiated on Cardizem drip. Essential hypertension. Hyperlipidemia. Morbid obesity, with a BMI of 37 kg/m . Plan: Plan dated 07/01/2023. The patient has now been weaned down to 2 L. She's getting hemodialysis as we speak. She continues on Cardizem at 10 mg an hour, and IV heparin. She still having atrial fibrillation with rapid ventricular response. The patient is hoping to be discharged early next week. The patient is currently oscar as per infectious diseases. She did complete Zithromax, and had a number of days of Rocephin. Microbiologic sampling currently is negative or pending. Chest x-ray is marginally improved. Time with Patient: Less than 30
--- NOTE | 2023-07-01 12:08 | P.PN ---
Subjective Patient is seen in follow-up for acute kidney injury, hemodialysis dependent. Tolerating dialysis well. No vomiting or diarrhea. No active bleeding. Wants to go home. present at bedside. Vital signs are stable. General: No acute distress. HEENT: Head exam is unremarkable. LUNGS: No audible rhonchi or wheezes. HEART: Rate and Rhythm are regular. ABDOMEN: Nontender. EXTREMITITES: No edema. Objective - Vital Signs Vital signs: Vital Signs Temp 97.7 F 07/01/23 08:13 Pulse 66 07/01/23 11:12 Resp 20 07/01/23 11:12 BP 166/75 07/01/23 11:12 Pulse Ox 96 07/01/23 11:12 FiO2 Intake & Output 06/30/23 07/01/23 07/01/23 18:59 06:59 18:59 Intake Total 848.778 81.672 365 Output Total 2700 Balance -1851.222 81.672 365 Intake: Intake, IV Titration 112.778 81.672 125 Amount Diltiazem 125 mg In 125 Sodium Chloride 0.9% 100 ml @ 10 MG/HR 10 mls/hr IV .[id number] NISHANT Rx#: [id number] Heparin Sod,Pork in 0.45% 112.778 NaCl 25,000 unit In 0.45 % NaCl 1 250ml.bag @ 7. 874 UNITS/KG/HR 10 mls/hr IV .Q24H NISHANT Rx#: [id number] Heparin Sod,Pork in 0.45% 81.672 NaCl 25,000 unit In 0.45 % NaCl 1 250ml.bag @ 8 UNITS/KG/HR 9.96 mls/hr IV .Q24H NISHANT Rx#: [id number] Oral 236 240 Hemodialysis 500 Output: Hemodialysis 2700 Other: Voiding Method Toilet Toilet Toilet # Voids 3 1 1 - Labs CBC & Chem 7: 07/01/23 01:58 06/30/23 08:39 Labs: Abnormal Lab Results - Last 24 Hours (Table) 06/28/23 06/30/23 07/01/23 Range/Units 18:16 19:45 01:58 RBC 2.77 L (3.80-5.40) m/uL Hgb 8.4 L (11.4-16.0) gm/dL Hct 25.1 L (34.0-46.0) % Neutrophils # 9.9 H (1.3-7.7) k/uL Lymphocytes # 0.5 L (1.0-4.8) k/uL APTT 33.3 H (22.0-30.0) sec Myeloperoxidase Ab 42.0 H (<3.5) U/mL Glomerular Base Memb Ab >680.0 H (<7.0) U/mL 07/01/23 Range/Units 01:58 RBC (3.80-5.40) m/uL Hgb (11.4-16.0) gm/dL Hct (34.0-46.0) % Neutrophils # (1.3-7.7) k/uL Lymphocytes # (1.0-4.8) k/uL APTT 33.2 H (22.0-30.0) sec Myeloperoxidase Ab (<3.5) U/mL Glomerular Base Memb Ab (<7.0) U/mL Assessment and Plan Plan: Assessment: 1. Acute kidney injury. 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 Started on hemodialysis 06/28/2023. Unknown baseline renal function. 2. Hyponatremia secondary to acute kidney injury. 3. A. fib with RVR maintained on Cardizem drip. 4. Metabolic acidosis secondary to acute kidney injury. Improved. 5. Pneumonia maintained on antibiotics. Denies hemoptysis. 6. Volume overload. Improving with ultrafiltration. 7. Hyperphosphatemia secondary to acute kidney injury maintained on PhosLo. Expect further improvement postdialysis. Plan: Currently seen while undergoing hemodialysis. Stop oral prednisone. Add IV Solu-Medrol 1 g daily 3 days. Add Pepcid 40 mg IV once daily. With concomitant MPO and anti-GBM antibody positivity, plasmapheresis is indicated. Transfer patient to another facility where plasmapheresis is available. This was discussed with patient and her present at bedside. They are agreeable with the plan. Patient will need kidney biopsy and initiation of induction therapy with Cytoxan. Case discussed with primary attending as well as nurse.
[2023-07-01] MEDS ORDERED: methylPREDNISolone SOD SUCCIN 1,000 MG in SODIUM CHLORIDE 0.9% 250 ML IVPB SCH (12:15)
[2023-07-01] MEDS ORDERED: FAMOTIDINE 20 MG/2 ML VIAL IV SCH (12:15)
--- NOTE | 2023-07-01 13:07 | P.DS ---
Providers Date of admission: 06/26/23 20:29 Expected date of discharge: 07/01/23 Attending physician: Regulo Greene Consults: 06/26/23 20:26 Consult Physician Routine Consulting Provider: Kendell Butler Consult Reason/Comments: pna Do you want consulting provider notified?: Yes Consult Physician Routine Consulting Provider: Eleanor Choudhury Consult Reason/Comments: judd Do you want consulting provider notified?: Yes 06/27/23 10:02 Consult Physician Routine Consulting Provider: Dwayne Morgan Consult Reason/Comments: Pneumonia, sepsis Do you want consulting provider notified?: Yes 06/28/23 05:11 Consult Physician Routine Consulting Provider: Jorge Sapp Consult Reason/Comments: New onset afib Do you want consulting provider notified?: Yes, Notify in am 06/28/23 10:43 Consult Physician Stat Consulting Provider: Jeremi Lopez Consult Reason/Comments: dialysis cath placement Do you want consulting provider notified?: Yes Primary care physician: Cr Alvarez MD Hospital Course: Discharge diagnoses; Acute kidney injury 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 fib with RVR Hyperphosphatemia Hyponatremia Bacterial pneumonia Hypertension Hospital course; patient is 63-year-old lady with past medical history significant for hypertension, who was a transfer from [facility] after initially presenting there for nausea vomiting and diarrhea. Patient stated that she has been having these symptom for at least 1 week. Patient has been having reduced appetite, having persistent nausea and vomiting. Also complaining of shortness of breath. No complaint of fever or chills. Patient presented to previous facility.,She had workup done and was found to be in acute kidney injury. CT abdominal pelvis done there showed features concerning for pneumonia. Patient was transferred to [facility] Initial lab work done in the ER showed WBC 17.7, hemoglobin 10.2, platelet count 445, sodium 122, potassium 5, BUN 100, creatinine 14.7, phosphorus 9.9, magnesium 2.2 Patient was admitted to medicine service 06/28. Patient seen and examined. Blood work done this morning showed WBC 19.8, hemoglobin 3.3, sodium 122, BUN 106, creatinine 15.14. Patient went into A. fib with RVR, currently on Cardizem drip Discussed with nephrology, and they recommended starting patient on renal replacement therapy 8/17. Patient seen and examined. Undergoing dialysis. 06/30. Patient seen and examined. Currently on 4 L of oxygen. Gets short of breath on exertion. Going to do dialysis today 07/01. Patient seen and examined. Currently on Cardizem and heparin drip. Blood work came back positive for MPO and anti-GBM antibody positivity, plasmapheresis is indicated per nephrology. Patient started on Solu-Medrol per nephrology. They recommended transferring patient to [facility] for initiation of plasmapheresis. [facility] contacted, patient accepted, currently waiting on bed availability. PHYSICAL EXAMINATION: GENERAL: The patient is alert and oriented x3, not in any acute distress. Well developed, well nourished. HEENT: Pupils are round and equally reacting to light. EOMI. No scleral icterus. No conjunctival pallor. Normocephalic, atraumatic. No pharyngeal erythema. No thyromegaly. CARDIOVASCULAR: S1 and S2 present. No murmurs, rubs, or gallops. PULMONARY: Diminished breath sounds at the bases bilaterally, no crackles ABDOMEN: Soft, nontender, nondistended, normoactive bowel sounds. No palpable organomegaly. MUSCULOSKELETAL: No joint swelling or deformity. EXTREMITIES: No cyanosis, clubbing, or pedal edema. NEUROLOGICAL: Gross neurological examination did not reveal any focal deficits. SKIN: No rashes. Dictation was produced using [employer] dictation software. please excuse any grammatical, word or spelling errors. Patient Condition at Discharge: Stable Plan - Discharge Summary Discharge Rx Participant: Yes New Discharge Prescriptions: New Metoprolol Tartrate [Lopressor] 100 mg PO BID tab Ampicillin-Sulbactam [Unasyn 3 gm vial] 3 gm IVPB Q24HR@1600 each Discontinued Metoprolol Tartrate [Lopressor] 50 mg PO BID-W/MEALS Discharge Medication List Ampicillin-Sulbactam [Unasyn 3 gm vial] 3 gm IVPB Q24HR@1600 each 07/01/23 [Rx] Metoprolol Tartrate [Lopressor] 100 mg PO BID tab 07/01/23 [Rx] Follow up Appointment(s)/Referral(s): Cr Alvarez MD [Primary Care Provider] - 1-2 days Activity/Diet/Wound Care/Special Instructions: [place] [facility] Address: [address] [place] [address] , [place] [address] Discharge Disposition: OTHER INSTITUTION NOT DEFINED
--- NOTE | 2023-07-01 14:54 | P.PN ---
Subjective Progress Note Date: 07/01/23 Principal diagnosis: Pneumonia Patient is a 63-year-old female with multiple comorbidities transferred to this facility for acute renal failure patient also have a elevat ed white count right midlung opacity and pulmonary symptoms concerning for possible pneumonia. On today's evaluation that is 07/01/2023, the patient remains to be afebrile, the patient is breathing comfortably on 3 L nasal cannula oxygen patient denies having any chest pain denies any worsening cough or sputum production no nausea vomiting no abdominal pain or diarrhea. Patient hemoglobin is 8.4 white count normalized to 10.6 no BMP was done today. Objective - Vital Signs Vital signs: Vital Signs Temp 97.7 F 07/01/23 08:13 Pulse 80 07/01/23 08:50 Resp 20 07/01/23 08:13 BP 150/73 07/01/23 08:13 Pulse Ox 98 07/01/23 08:37 FiO2 Intake & Output 06/30/23 07/01/23 07/01/23 18:59 06:59 18:59 Intake Total 848.778 81.672 125 Output Total 2700 Balance -1851.222 81.672 125 Intake: Intake, IV Titration 112.778 81.672 125 Amount Diltiazem 125 mg In 125 Sodium Chloride 0.9% 100 ml @ 10 MG/HR 10 mls/hr IV .[id number] NISHANT Rx#: [id number] Heparin Sod,Pork in 0.45% 112.778 NaCl 25,000 unit In 0.45 % NaCl 1 250ml.bag @ 7. 874 UNITS/KG/HR 10 mls/hr IV .Q24H NISHANT Rx#: [id number] Heparin Sod,Pork in 0.45% 81.672 NaCl 25,000 unit In 0.45 % NaCl 1 250ml.bag @ 8 UNITS/KG/HR 9.96 mls/hr IV .Q24H NISHANT Rx#: [id number] Oral 236 Hemodialysis 500 Output: Hemodialysis 2700 Other: Voiding Method Toilet Toilet Toilet # Voids 3 1 1 - Labs CBC & Chem 7: 07/01/23 01:58 06/30/23 08:39 Labs: Abnormal Lab Results - Last 24 Hours (Table) 06/28/23 06/30/23 06/30/23 Range/Units 18:16 08:39 08:39 WBC 16.1 H (3.8-10.6) k/uL RBC 2.98 L (3.80-5.40) m/uL Hgb 8.8 L (11.4-16.0) gm/dL Hct 27.0 L (34.0-46.0) % Neutrophils # (1.3-7.7) k/uL Lymphocytes # (1.0-4.8) k/uL APTT (22.0-30.0) sec Sodium 127 L (137-145) mmol/L Chloride 89 L (98-107) mmol/L BUN 51 H (7-17) mg/dL Creatinine 9.14 H* (0.52-1.04) mg/dL Calcium 8.2 L (8.4-10.2) mg/dL Alkaline Phosphatase 168 H (38-126) U/L Total Protein 6.2 L (6.3-8.2) g/dL Albumin 3.0 L (3.5-5.0) g/dL Myeloperoxidase Ab 42.0 H (<3.5) U/mL Glomerular Base Memb Ab >680.0 H (<7.0) U/mL 06/30/23 06/30/23 07/01/23 Range/Units 08:39 19:45 01:58 WBC (3.8-10.6) k/uL RBC 2.77 L (3.80-5.40) m/uL Hgb 8.4 L (11.4-16.0) gm/dL Hct 25.1 L (34.0-46.0) % Neutrophils # 9.9 H (1.3-7.7) k/uL Lymphocytes # 0.5 L (1.0-4.8) k/uL APTT 40.2 H 33.3 H (22.0-30.0) sec Sodium (137-145) mmol/L Chloride (98-107) mmol/L BUN (7-17) mg/dL Creatinine (0.52-1.04) mg/dL Calcium (8.4-10.2) mg/dL Alkaline Phosphatase (38-126) U/L Total Protein (6.3-8.2) g/dL Albumin (3.5-5.0) g/dL Myeloperoxidase Ab (<3.5) U/mL Glomerular Base Memb Ab (<7.0) U/mL 07/01/23 Range/Units 01:58 WBC (3.8-10.6) k/uL RBC (3.80-5.40) m/uL Hgb (11.4-16.0) gm/dL Hct (34.0-46.0) % Neutrophils # (1.3-7.7) k/uL Lymphocytes # (1.0-4.8) k/uL APTT 33.2 H (22.0-30.0) sec Sodium (137-145) mmol/L Chloride (98-107) mmol/L BUN (7-17) mg/dL Creatinine (0.52-1.04) mg/dL Calcium (8.4-10.2) mg/dL Alkaline Phosphatase (38-126) U/L Total Protein (6.3-8.2) g/dL Albumin (3.5-5.0) g/dL Myeloperoxidase Ab (<3.5) U/mL Glomerular Base Memb Ab (<7.0) U/mL Assessment and Plan (1) Pneumonia Current Visit: Yes Status: Acute Code(s): J18.9 - PNEUMONIA, UNSPECIFIED ORGANISM SNOMED Code(s): 332253716 Plan: 1patient with a right midlung pneumonia in this patient with predominantly GI symptoms, in addition to the respiratory symptoms with concern for possible Le gionella. 2Urine for Legionella antigen came back negative patient was unable to provide any sputum patient did have procalcitonin 0.74. 3patient has shown clinical improvement the patient white count has normalized after switching back therapy to Unasyn we will consider a short course of oral Augmentin on discharge and close outpatient follow-up Dictation was produced using [employer] software. please excuse any grammatical, word or spelling errors.
[2023-07-01 15:24] LABS: ALT 31 U/L (4-34); AST 35 U/L (14-36); African American GFR (CKD) 15 (>60 ml/min/1.73 sqM); Albumin 3.2 g/dL (3.5-5.0); Alkaline Phosphatase 268 U/L (38-126); Anion Gap 13 mmol/L; Blood Urea Nitrogen 18 mg/dL (7-17); Calcium 8.4 mg/dL (8.4-10.2); Carbon Dioxide 24 mmol/L (22-30); Chloride 94 mmol/L (98-107); Glucose 158 mg/dL (74-99); Non-African American GFR(CKD) 13 (>60 ml/min/1.73 sqM); Potassium 4.2 mmol/L (3.5-5.1); Sodium 131 mmol/L (137-145); Total Bilirubin 0.9 mg/dL (0.2-1.3); Total Protein 6.6 g/dL (6.3-8.2)
[2023-07-01] MEDS: AMPICILLIN-SULBACTAM 3 GM in SODIUM CHLORIDE 0.9% 100 ML IVPB SCH (15:27)
[2023-07-01 15:36] LABS: C Reactive Protein 19.1 mg/dL (<1.0)
[2023-07-01 21:19] VITALS: BP 171/89; PULSE 81; RESP 20; TEMP 98
[2023-07-02] MEDS ORDERED: FAMOTIDINE 20 MG/2 ML VIAL IV SCH (09:00)
[2023-07-03 15:15] LABS: C-ANCA <1:20 Titer (<1:20)
== END 2023-07-01 17:55 | disposition short-term general hospital (02) | DRG 299 ==
LOC: EC 17:41 → 3SCARD 20:29
PROVIDERS: ADMIT Hospitalist; ATTEND Hospitalist
PROC: 02HV33Z Insertion of Infusion Device into Superior Vena Cava, Percutaneous Approach (ICD-10-PCS; principal; 2023-06-28 12:13)
PROC: 5A1D70Z Performance of Urinary Filtration, Intermittent, Less than 6 Hours Per Day (ICD-10-PCS; 2023-06-28 12:13)
DX: I77.82 Antineutrophilic cytoplasmic antibody [ANCA] vasculitis (principal); J15.9 Unspecified bacterial pneumonia; N17.0 Acute kidney failure with tubular necrosis; J96.01 Acute respiratory failure with hypoxia; E87.1 Hypo-osmolality and hyponatremia; E87.20 Acidosis, unspecified; N39.0 Urinary tract infection, site not specified; M31.0 Hypersensitivity angiitis; D63.1 Anemia in chronic kidney disease; E66.01 Morbid (severe) obesity due to excess calories; Z68.37 Body mass index [BMI] 37.0-37.9, adult; K57.30 Diverticulosis of large intestine without perforation or abscess without bleeding; K52.9 Noninfective gastroenteritis and colitis, unspecified; E83.39 Other disorders of phosphorus metabolism; E78.5 Hyperlipidemia, unspecified; E86.0 Dehydration; I12.9 Hypertensive chronic kidney disease with stage 1 through stage 4 chronic kidney disease, or unspecified chronic kidney disease; E86.1 Hypovolemia; E87.5 Hyperkalemia; E87.70 Fluid overload, unspecified; I08.0 Rheumatic disorders of both mitral and aortic valves; I27.20 Pulmonary hypertension, unspecified; N18.9 Chronic kidney disease, unspecified; I48.0 Paroxysmal atrial fibrillation; Z20.822 Contact with and (suspected) exposure to COVID-19; Z79.01 Long term (current) use of anticoagulants; Z79.899 Other long term (current) drug therapy; Z87.442 Personal history of urinary calculi; Z87.891 Personal history of nicotine dependence; Z88.5 Allergy status to narcotic agent; Z91.030 Bee allergy status; Z86.010 Personal history of colon polyps
CPT/HCPCS: 36410; 36415; 36558; 71045; 76770; 76937; 77001; 80048; 80053; 81001; 83516; 83735; 84100; 84145; 84484; 85025; 85027; 85610; 85730; 86038; 86140; 86160; 86225; 86255; 86334; 86335; 86704; 86706; 86803; 87340; 87449; 87502; 87635; 90935; 93005; 93306; 94640; 94664; 94760; 96361; 96374; 99291